=== PATIENT | female | born 1955 | race Caucasian/White ===

== ENCOUNTER 2017-08-24 14:40 | Outpatient (CLI) | payer BC | END 2017-08-24 14:41 | disposition home or self-care (01) | LOC: ULT 14:40 | PROVIDERS: ATTEND Internal Medicine | DX: I50.9 Heart failure, unspecified (principal) | CPT/HCPCS: 93306 ==

== ENCOUNTER 2017-11-03 19:30 | Outpatient (CLI) | payer BC | END 2017-11-03 19:31 | disposition home or self-care (01) | LOC: SLEEPLAB 19:30 | PROVIDERS: ATTEND Internal Medicine | DX: G47.33 Obstructive sleep apnea (adult) (pediatric) (principal); E66.9 Obesity, unspecified; I50.9 Heart failure, unspecified; I48.91 Unspecified atrial fibrillation; J44.9 Chronic obstructive pulmonary disease, unspecified; R53.83 Other fatigue; R06.83 Snoring | CPT/HCPCS: 95811 ==

== ENCOUNTER 2018-10-20 15:07 | Outpatient (CLI) | payer BC ==
--- NOTE | 2018-10-24 14:48 | MMO ---
MAMMOGRAM DIGITAL SCREENING BILATERAL: DATE: 10/20/18 HISTORY: 63-year-old female for baseline bilateral screening mammogram. COMPARISON: None available. TECHNIQUE: Digital mammographic views. Computer-aided detection (CAD) utilized. FINDINGS: The breasts are almost entirely fatty. There are two well-circumscribed nodules in the left upper outer quadrant consistent with intramammar y lymph nodes. Otherwise, there is no evidence of suspicious mass, suspicious calcifications, or architectural disto rtion. IMPRESSION: 1. BIRADS 2 - benign. 2. Recommendation: routine bilateral annual screening mammogram (unless the patient develops suspici ous clinical findings that would warrant earlier imaging follow up). lucas [] POS: MARIELA
== END 2018-10-20 15:08 | disposition home or self-care (01) ==
LOC: SCSMAMMO 15:07
PROVIDERS: ATTEND Internal Medicine
DX: Z12.31 Encounter for screening mammogram for malignant neoplasm of breast (principal)
CPT/HCPCS: 77067

== ENCOUNTER 2019-07-19 13:56 | Outpatient (CLI) | payer BC ==
--- NOTE | 2019-07-19 14:23 | RAD ---
XR Chest Pa Lat @ POB HISTORY: Dyspnea COMPARISON: None FINDINGS: The heart size is normal. The lungs are well expanded without focal areas of consolidation, pneumothorax or pleural effusions. IMPRESSION: No radiographic evidence of acute cardiopulmonary process.
== END 2019-07-19 13:57 | disposition home or self-care (01) ==
LOC: RAD 13:56
PROVIDERS: ATTEND Internal Medicine Pulmonary Disease
DX: R06.00 Dyspnea, unspecified (principal)
CPT/HCPCS: 71046

== ENCOUNTER 2019-07-24 10:19 | Emergency (ER) | payer BC ==
[2019-07-24 10:58] LABS: #Eosinphils 0.3 thou/uL (0.0-0.7); #Lymphocytes 2.3 thou/uL (1.20-3.40); #Monocytes 0.9 thou/uL (0.11-0.59); #Neutrophils 6.4 thou/uL (1.40-6.50); %Basophils 0.2 % (0.0-1.0); %Eosinophils 2.8 % (0.0-10.0); %Lymphocytes 23.4 % (21.0-51.0); %Monocytes 8.7 % (0.0-10.0); Hemoglobin 11.8 g/dL (12.0-16.0); Mean Corpuscular HGB CONC 33.1 g/dL (32.0-36.0); Mean Corpuscular Hemoglobin 27.5 pg (27.0-31.0); Mean Platelet Volume 9.1 fL (7.4-10.4); Platelet Count 285 thou/uL (130-400); RBC Distribution Width 14.3 % (11.5-14.5); Red Blood Cell (RBC) Count 4.29 mill/uL (4.20-5.40); White Blood Cell (WBC) Count 9.9 thou/uL (4.8-10.8)
[2019-07-24 11:19] LABS: ALT (SGPT) 22 U/L (8-55); AST (SGOT) 22 U/L (5-34); Albumin 3.9 g/dL (3.4-4.8); Alkaline Phosphatase 65 U/L (40-150); Anion Gap 18 mmol/L (10-20); BUN (Urea Nitrogen) 29 mg/dL (9.8-20.1); Bilirubin, Total 0.4 mg/dL (0.2-1.2); CK (CPK) 210 U/L (29-168); Calc. Creatinine Clearance 0 mL/min (70-130); Calcium 9.5 mg/dL (7.8-10.44); Carbon Dioxide 27 mmol/L (23-31); Chloride 96 mmol/L (98-107); Estimated GFR-MDRD 44; Globulin 3.4 g/dL (2.4-3.5); Glucose 207 mg/dL (80-115); Lipase 31 U/L (8-78); Potassium 3.6 mmol/L (3.5-5.1); Protein, Total 7.3 g/dL (6.0-8.3); Sodium 137 mmol/L (136-145)
--- NOTE | 2019-07-24 12:04 | CT ---
EXAM: CT angiogram of the chest including 3-D rendering: HISTORY: Atrial fibrillation history elevated heart rate COMPARISON: None FINDINGS: There is adequate opacification of the pulmonary arteries. No evidence for aortic aneurysm or dissection. No convincing CT evidence for acute pulmonary embolism. Nonspecific heterogeneous mild bilateral mosaic appearance of the chest. No evidence for mediastinal mass or adenopathy. No evidence for pleural or pericardial effusion. The visualized upper abdomen is unremarkable. IMPRESSION: No convincing CT evidence for acute pulmonary embolism. Minimal nonspecific bilateral mosaic appearance of the chest
[2019-07-24] MEDS ORDERED: ISOVUE-370 76%-LOCM 1 ML ONE (13:11)
[2019-07-24] MEDS ORDERED: Metoprolol Tartrate 25 MG TAB ONE (13:36)
[2019-07-24 13:40] LABS: Bilirubin Negative (Negative); Blood, Urine Negative (Negative); Clarity Clear (Clear); Glucose, Urine (Dipstick) Normal (Negative); Leukocyte Negative Leu/uL (Negative); Nitrite Negative (Negative); Protein, Urine (Dipstick) Negative (Neg-Trace); Urobilinogen Normal mg/dL (Less than 2)
== END 2019-07-24 13:48 | disposition home or self-care (01) ==
LOC: ERS 10:19
DX: R00.0 Tachycardia, unspecified (principal); I48.91 Unspecified atrial fibrillation; E11.9 Type 2 diabetes mellitus without complications
CPT/HCPCS: 36415; 71275; 80053; 81003; 82550; 83690; 84484; 85025; 85379; 93005; 94760; 96361; 96374; Q9966

== ENCOUNTER 2019-07-27 11:53 | Day surgery (SDC) | payer BC ==
[2019-07-26 14:08] VITALS: BMI 51.0
[2019-07-27] MEDS ORDERED: PROPOFOL 200 MG/20 ML VIAL ONE (13:07)
[2019-07-27] MEDS ORDERED: PROPOFOL 20 ML ONE (13:15)
--- NOTE | 2019-07-27 14:34 | OP ---
DATE OF PROCEDURE: 07/27/2019 PREOPERATIVE DIAGNOSIS: Atrial flutter. POSTPROCEDURE DIAGNOSIS: Sinus rhythm. PROCEDURE PERFORMED: Successful synchronized cardioversion at 100 joules. COMPLICATIONS: None. ANESTHESIA: Conscious sedation with propofol. INDICATIONS FOR PROCEDURE: The patient was seen and evaluated in the office by Anne-Marie Joe PA-C. She was found to be in atrial flutter. She did have shortness of breath. She was tachycardic, this is a new finding. She was scheduled for cardioversion. I discussed the procedure in full detail with Ms. Brown. Risks included, not limited to the following: Stroke, need for repeat cardioversion, failed cardioversion, burning of skin. All questions were answered. Given the above, the patient agreed to proceed with above procedure. Conscious sedation performed with propofol. DESCRIPTION OF PROCEDURE: Synchronized cardioversion performed at 100 joules. This was successful. Job ID: [id number]
== END 2019-07-27 14:10 | disposition home or self-care (01) ==
LOC: CCL 11:53
PROVIDERS: ATTEND Internal Medicine Cardiovascular Disease
PROC: 5A2204Z Restoration of Cardiac Rhythm, Single (ICD-10-PCS; principal; 2019-07-27)
DX: I48.3 Typical atrial flutter (principal); E78.5 Hyperlipidemia, unspecified; E11.9 Type 2 diabetes mellitus without complications; I10 Essential (primary) hypertension; I48.0 Paroxysmal atrial fibrillation; J44.9 Chronic obstructive pulmonary disease, unspecified; Z87.891 Personal history of nicotine dependence; Z79.01 Long term (current) use of anticoagulants; Z79.4 Long term (current) use of insulin; Z79.899 Other long term (current) drug therapy; Z88.6 Allergy status to analgesic agent
CPT/HCPCS: 36416; 92960; J2704

== ENCOUNTER 2019-09-01 09:45 | Outpatient (CLI) | payer BC ==
[2019-09-01 13:46] LABS: Hemoglobin 11.7 g/dL (12.0-16.0); Mean Corpuscular HGB CONC 32.6 g/dL (32.0-36.0); Mean Corpuscular Hemoglobin 26.7 pg (27.0-31.0); Mean Corpuscular Volume 81.7 fL (78.0-98.0); Mean Platelet Volume 8.9 fL (7.4-10.4); Platelet Count 285 thou/uL (130-400); RBC Distribution Width 14.5 % (11.5-14.5); White Blood Cell (WBC) Count 12.2 thou/uL (4.8-10.8)
[2019-09-01 13:53] LABS: INR-International Normal Ratio 1.1; Prothrombin Time 14.5 SEC (12.0-14.7)
[2019-09-01 14:08] LABS: Anion Gap 15 mmol/L (10-20); BUN (Urea Nitrogen) 27 mg/dL (9.8-20.1); Calc. Creatinine Clearance 0 mL/min (70-130); Calcium 9.5 mg/dL (7.8-10.44); Carbon Dioxide 29 mmol/L (23-31); Chloride 94 mmol/L (98-107); Estimated GFR-MDRD 44; Glucose 172 mg/dL (80-115); Potassium 3.4 mmol/L (3.5-5.1); Sodium 135 mmol/L (136-145)
--- NOTE | 2019-09-04 11:39 | EKG ---
Test Reason : Blood Pressure : / mmHG Vent. Rate : 087 BPM Atrial Rate : 087 BPM P-R Int : 144 ms QRS Dur : 096 ms QT Int : 390 ms P-R-T Axes : 061 058 045 degrees QTc Int : 469 ms Normal sinus rhythm Cannot rule out Inferior infarct (cited on or before 24-JUL-2019) Abnormal ECG When compared with ECG of 24-JUL-2019 10:28, Fusion complexes are no longer Present Premature ventricular complexes are no longer Present Nonspecific T wave abnormality no longer evident in Inferior leads Nonspecific T wave abnormality no longer evident in Lateral leads Confirmed by Agapito SUERO ([id number]) on 09/04/2019 11:39:21 AM Referred By: [facility] Confirmed By:Agapito SUERO
== END 2019-09-01 09:46 | disposition home or self-care (01) ==
LOC: LABBT 09:45
PROVIDERS: ATTEND Internal Medicine Cardiovascular Disease
DX: Z01.818 Encounter for other preprocedural examination (principal); Z51.81 Encounter for therapeutic drug level monitoring; I48.92 Unspecified atrial flutter; Z79.01 Long term (current) use of anticoagulants
CPT/HCPCS: 80048; 85027; 85610; 85730; 93005; 93010

== ENCOUNTER 2019-09-04 06:57 | Day surgery (SDC) | payer BC ==
[2019-09-01 13:13] VITALS: BMI 49.9
[2019-09-04] MEDS ORDERED: Heparin 10,000 UNITS/1 ML VIAL ONE (07:18)
[2019-09-04] MEDS ORDERED: Lidocaine 1% (PF) 30 ML VIAL ONE ×2 (07:19→08:32)
[2019-09-04] MEDS ORDERED: Phenylephrine HCL 10 MG/ML VIAL ONE (07:38)
[2019-09-04] MEDS ORDERED: Lidocaine 2% Jelly 5 ML TUBE ONE (07:38)
[2019-09-04] MEDS ORDERED: Fentanyl 100 MCG/2 ML VIAL ONE (07:38)
[2019-09-04] MEDS ORDERED: Isoproterenol 0.2 MG/1 ML AMP ONE (09:03)
[2019-09-04] MEDS ORDERED: DOPamine 400 MG/D5W 250 ML 250 ML ONE (09:57)
[2019-09-04] MEDS ORDERED: Metoprolol Tartrate 5 MG/5 ML VIAL ONE (10:42)
--- NOTE | 2019-09-04 13:36 | RAD ---
Exam: Chest one view HISTORY:Postop ablation. Comparison: 07/19/2019 FINDINGS: Cardiac silhouette: Normal Aorta: Unremarkable Pulmonary vessels: Normal Costophrenic angles: Clear LUNGS: No masses or consolidation. Pneumothorax: None Osseous abnormalities: None IMPRESSION: No acute cardiopulmonary process.
--- NOTE | 2019-09-04 15:06 | OP ---
DATE OF PROCEDURE: 09/04/2019 PROCEDURES PERFORMED: Electrophysiology study and radiofrequency ablation. REASON FOR PROCEDURE: Ms. Brown is a pleasant 64-year-old woman with history of recurrent atrial flutter on anticoagulation, who also has obesity, COPD, type 2 diabetes, and hypertension. She is here for an EP study and radiofrequency ablation procedure. DESCRIPTION OF PROCEDURE: The patient received propofol by Anesthesia specialist and general anesthesia was performed due to her elevated BMI. The right femoral vein area was prepped, draped, and anesthetized using subcutaneous lidocaine and with ultrasound guidance, two 8-Yoruba short sheaths were introduced through which a ThermoLabtiva SFST catheter was advanced to the right atrium obtaining a 3D map of the right atrium, His bundle, and CS location as was the cavotricuspid isthmus was well delineated. A decapolar catheter was advanced to the right atrium, right ventricle, His bundle, and CS location. Pacing, mapping, and recording were performed including left atrial pacing via the CS poles. Following findings were noted; baseline rhythm was sinus rhythm at cycle length 783 milliseconds, NH 138 milliseconds, QRS 86 milliseconds, QT 395 milliseconds, AH 97 milliseconds, and HV 37 millisecond. Sinus node recovery time is 1269 milliseconds and corrected at 400 milliseconds. AV Wenckebach cycle length was 320 milliseconds. Retrograde Wenckebach cycle length was 280 milliseconds. Concentric retrograde VA conduction was seen throughout. AV anton ERP was measured at 600/280 milliseconds. No definite jump was seen up until prior to the ERP. With burst atrial pacing, we were able to induce an atrial flutter with cycle length about 215 milliseconds. Pacing from the CS os/cavotricuspid isthmus area, entrained the tachycardia and the post pacing interval matched the tachycardia cycle length suggestive of isthmus dependency of the circuit. Following that, radiofrequency ablation of the cavotricuspid isthmus ablation was performed. During proximal CS pacing, we were able to prolong the transisthmus time to 120 milliseconds. Posterior conduction was demonstrated during the atrial block of the isthmus was seen by longus transisthmus time adjacent to the ablation line. Following that, dopamine was administered and the line was found to be patent as well. Spontaneous atrial fibrillation was seen during the case, which eventually was cardioverted back to sinus rhythm. A total of 14 ablation lesions with total ablation time 40 minutes and 36 seconds. CONCLUSION: 1. Successful cavotricuspid isthmus ablation. 2. Baseline inducible atrial flutter, not inducible after the ablation. 3. Normal sinus anton recovery time, normal AV anton and His-Purkinje function. 4. No evidence of accessory pathway or dual AV anton physiology present. 5. Spontaneous-induced atrial fibrillation, shock terminated. PLAN: 1. Resume anticoagulation. Monitor for recurrent atrial arrhythmias. Consider antiarrhythmic therapy or pulmonary venous isolation if recurrent atrial fibrillation is seen. 2. Weight loss is strongly advised. Job ID: [id number]
== END 2019-09-04 14:30 | disposition home or self-care (01) ==
LOC: CCL 06:57
PROVIDERS: ATTEND Internal Medicine Cardiovascular Disease
PROC: 4A0234Z Measurement of Cardiac Electrical Activity, Percutaneous Approach (ICD-10-PCS; principal; 2019-09-04)
PROC: 4A023FZ Measurement of Cardiac Rhythm, Percutaneous Approach (ICD-10-PCS; principal; 2019-09-04)
PROC: 02583ZZ Destruction of Conduction Mechanism, Percutaneous Approach (ICD-10-PCS; principal; 2019-09-04)
DX: I48.92 Unspecified atrial flutter (principal); I10 Essential (primary) hypertension; E11.9 Type 2 diabetes mellitus without complications; J44.9 Chronic obstructive pulmonary disease, unspecified; E66.01 Morbid (severe) obesity due to excess calories; Z68.43 Body mass index [BMI] 50.0-59.9, adult; Z79.4 Long term (current) use of insulin; Z79.899 Other long term (current) drug therapy; Z87.891 Personal history of nicotine dependence; Z88.8 Allergy status to other drugs, medicaments and biological substances
CPT/HCPCS: 36416; 71045; 76942; 92960; 93005; 93613; 93623; 93653; C1732; C1769; J1265; J1644; J2001; J2370; J3010

== ENCOUNTER 2019-09-05 22:32 | Inpatient (IN) | payer BC ==
--- NOTE | 2019-09-05 22:49 | RAD ---
Exam: Chest one view HISTORY:Emergency exam Comparison: 09/04/2019 FINDINGS: Lungs: Patchy right lower lung zone density Cardiac silhouette:Enlarged cardiac silhouette Pulmonary vessels: Engorged pulmonary vasculature Pleural Spaces: Blunting of right lateral costophrenic sulcus Pneumothorax: None Osseous abnormalities: None of acuity. IMPRESSION: Findings indicate fluid overload. Patchy right infrahilar, lower lung zone density could relate to edema or superimposed pneumonitis. Recommend continued imaging follow-up. Transcribed Date/Time: 09/05/2019 11:03 PM
[2019-09-05] MEDS ORDERED: Diltiazem 125 MG/25 ML ONE (22:58)
[2019-09-05 23:07] LABS: #Basophils 0.1 thou/uL (0.0-0.2); #Eosinphils 0.3 thou/uL (0.0-0.7); #Lymphocytes 3.7 thou/uL (1.20-3.40); #Neutrophils 8.1 thou/uL (1.40-6.50); %Basophils 0.4 % (0.0-1.0); %Neutrophils 61.6 % (42.0-75.0); Hemoglobin 11.4 g/dL (12.0-16.0); Mean Corpuscular Hemoglobin 27.2 pg (27.0-31.0); Mean Corpuscular Volume 82.3 fL (78.0-98.0); Mean Platelet Volume 8.9 fL (7.4-10.4); Platelet Count 269 thou/uL (130-400); RBC Distribution Width 14.8 % (11.5-14.5); Red Blood Cell (RBC) Count 4.21 mill/uL (4.20-5.40); White Blood Cell (WBC) Count 13.1 thou/uL (4.8-10.8)
[2019-09-05 23:27] LABS: ALT (SGPT) 19 U/L (8-55); AST (SGOT) 21 U/L (5-34); Albumin 3.9 g/dL (3.4-4.8); Alkaline Phosphatase 71 U/L (40-110); Anion Gap 16 mmol/L (10-20); BUN (Urea Nitrogen) 21 mg/dL (9.8-20.1); Bilirubin, Total 0.4 mg/dL (0.2-1.2); Calc. Creatinine Clearance 0 mL/min (70-130); Calcium 9.6 mg/dL (7.8-10.44); Carbon Dioxide 27 mmol/L (23-31); Chloride 95 mmol/L (98-107); Estimated GFR-MDRD 43; Glucose 187 mg/dL (80-115); Potassium 3.1 mmol/L (3.5-5.1); Protein, Total 7.9 g/dL (6.0-8.3); Sodium 135 mmol/L (136-145)
[2019-09-05 23:56] LABS: CKMB 1.5 ng/mL (0-6.6)
[2019-09-06] MEDS ORDERED: cefTRIAXone\\ROCEPHIN 2 GM VIAL ONE (00:45)
[2019-09-06] MEDS ORDERED: Aspirin Chewable 81 MG TAB ONE (00:45)
[2019-09-06] MEDS ORDERED: Potassium Chloride 20 MEQ TAB ONE (00:45)
[2019-09-06] MEDS ORDERED: Enoxaparin Sodium 30 MG/0.3 ML SYRINGE ONE (00:54)
[2019-09-06] MEDS ORDERED: Enoxaparin Sodium 100 MG/ML SYRINGE ONE (00:54)
[2019-09-06] MEDS ORDERED: Acetaminophen 325 MG TAB PO PRN (01:08)
[2019-09-06] MEDS ORDERED: Magnesium 2 GM/50 ML 2 GM in Premix Bag 1 BAG IVPB SCH (01:15)
--- NOTE | 2019-09-06 01:20 | PDOC.EVN ---
Event Note - Event Note Event Note: Dictated
[2019-09-06] MEDS ORDERED: Potassium Chloride 10 MEQ in Premix Bag 1 BAG IVPB SCH (02:00)
--- NOTE | 2019-09-06 02:00 | HP ---
CHIEF COMPLAINT: Shortness of breath. HISTORY OF PRESENT ILLNESS: Ms. Brown is a 64-year-old female with past medical history of atrial fibrillation/atrial flutter, who underwent cardiac ablation yesterday, presented to the emergency room with shortness of breath and chest tightness that started while walking. Workup in the emergency room, the patient was found to be in atrial fibrillation with rapid ventricular response, heart rate in the 140s. Initially, the patient was given 20 mg of IV diltiazem with no response. The patient started on IV Cardizem drip, also she was found to be hypokalemic with a potassium of 3.1 and hypomagnesemic with a magnesium level of 1.5. Potassium and magnesium supplements started in the ED. Initial troponin is 0.237. The patient denies chest pain. The patient was given one dose of IV Lovenox. WBC count is elevated at 13.1. Also, the patient was given one dose of IV ceftriaxone. The patient is being admitted to the [facility] for further management. PAST MEDICAL HISTORY: 1. Atrial fibrillation. 2. Diabetes mellitus. 3. Sleep apnea. PAST SURGICAL HISTORY: 1. Left knee surgery. 2. Appendectomy. 3. Cholecystectomy. 4. Cardiac ablation. FAMILY HISTORY: Reviewed and noncontributory. SOCIAL HISTORY: She is a former cigarette smoker. Denies alcohol drinking or drug abuse. FAMILY HISTORY: Reviewed and noncontributory. HOME MEDICATIONS: Please see home medication reconciliation form for updated medications. ALLERGIES: ALLERGIC TO NSAID. REVIEW OF SYSTEMS: Review of 14 systems negative except what is mentioned in the history of present illness. PHYSICAL EXAMINATION: GENERAL: The patient is awake, alert, in moderate distress. VITAL SIGNS: Blood pressure 118/91, pulse is 110, respiratory rate is 18, temperature 98.4. HEAD AND NECK: Normocephalic, atraumatic. NECK: Supple. No JVD. CHEST: Fair bilateral air entry. HEART: Irregularly irregular. Tachycardic. ABDOMEN: Soft, nontender. Bowel sounds present. NEUROLOGIC: Awake, alert, oriented x3. PSYCHIATRIC: Normal mood. EXTREMITIES: No clubbing, or cyanosis. LABORATORY DATA: Potassium is low at 3.1, magnesium is low at 1.5, WBC count elevated at 13.1, hemoglobin 11.4, BUN is 21, creatinine 1.25. ASSESSMENT: 1. Atrial fibrillation with rapid ventricular response. The patient just had a cardiac ablation yesterday. 2. Acute shortness of breath. 3. Diabetes mellitus with hyperglycemia, type 2. 4. Sleep apnea. PLAN: 1. Admit to IMCU. 2. Continue with IV diltiazem drip. 3. Replace potassium. 4. Replace magnesium. 5. Serial cardiac enzymes. 6. We will consult patient's cardiac mainframe programmer analyst for evaluation and further recommendations. 7. The patient was given one dose of Lovenox in the ED, the patient is supposed to be started tomorrow on Eliquis. Further anticoagulation as per Cardiology. 8. Reconcile home medications. 9. Deep venous thrombosis prophylaxis as appropriate. 10. Expected length of stay, 2 midnights or more. Job ID: [id number]
[2019-09-06 03:32] VITALS: BMI 51.4
[2019-09-06 03:54] LABS: CKMB 1.1 ng/mL (0-6.6)
[2019-09-06 05:21] LABS: #Basophils 0.1 thou/uL (0.0-0.2); #Eosinphils 0.3 thou/uL (0.0-0.7); #Lymphocytes 3.7 thou/uL (1.20-3.40); #Monocytes 0.9 thou/uL (0.11-0.59); #Neutrophils 5.6 thou/uL (1.40-6.50); %Basophils 0.8 % (0.0-1.0); %Eosinophils 2.5 % (0.0-10.0); %Lymphocytes 35.3 % (21.0-51.0); %Monocytes 8.7 % (0.0-10.0); %Neutrophils 52.8 % (42.0-75.0); Hemoglobin 10.8 g/dL (12.0-16.0); Mean Corpuscular HGB CONC 33.3 g/dL (32.0-36.0); Mean Corpuscular Hemoglobin 27.4 pg (27.0-31.0); Mean Corpuscular Volume 82.2 fL (78.0-98.0); Platelet Count 242 thou/uL (130-400); RBC Distribution Width 14.7 % (11.5-14.5); Red Blood Cell (RBC) Count 3.96 mill/uL (4.20-5.40); White Blood Cell (WBC) Count 10.5 thou/uL (4.8-10.8)
[2019-09-06 05:44] LABS: Anion Gap 15 mmol/L (10-20); BUN (Urea Nitrogen) 22 mg/dL (9.8-20.1); Calc. Creatinine Clearance 110 mL/min (70-130); Carbon Dioxide 29 mmol/L (23-31); Chloride 95 mmol/L (98-107); Estimated GFR-MDRD 52; Glucose 138 mg/dL (80-115); Magnesium 2.2 mg/dL (1.6-2.6); Potassium 3.2 mmol/L (3.5-5.1); Sodium 136 mmol/L (136-145)
[2019-09-06] MEDS: Famotidine 20 MG TAB PO SCH ×2 (09:30→19:14)
[2019-09-06] MEDS: Diltiazem 125 MG in Sodium Chloride 0.9% 100 ML IVPB SCH ×2 (10:16→20:17)
[2019-09-06] MEDS ORDERED: Dronedarone HCl 400 MG TAB PO SCH (10:51)
--- NOTE | 2019-09-06 11:43 | CON ---
DATE OF CONSULTATION: 09/06/2019 This consultation encompassed 70 minutes of time, of that time, greater than 50% spent with the patient and/or the patient's unit in the hospital. REASON FOR CONSULTATION: IMCU management. HISTORY OF PRESENT ILLNESS: The patient is a pleasant 64-year-old female, who was hospitalized yesterday with atrial fibrillation with rapid ventricular response. She has underlying history of ELIZ and COPD. She is managed by my partner, Dr. Hoff as an outpatient. She states that she has been compliant with her CPAP. She underwent a cardiac ablation 2 days ago for atrial flutter. He was hopeful that would also alleviate her atrial fibrillation, but it is not. She has been using a Symbicort inhaler for her COPD, but she thinks that may be aggravating her heart rate. Currently, she is only short of breath with exertion and her heart rate is under control on a Cardizem drip. PAST MEDICAL HISTORY: 1. Atrial fibrillation. 2. Atrial flutter. 3. Diabetes mellitus. 4. ELIZ. 5. COPD. PAST SURGICAL HISTORY: 1. Left knee surgery. 2. Cardiac ablation. 3. Appendectomy. 4. Cholecystectomy. FAMILY MEDICAL HISTORY: Unremarkable. SOCIAL HISTORY: Formerly smoked for about 32 years and quit 12 years ago. 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 She does not consume alcohol. Does not use illicit drugs. ALLERGIES: NONSTEROIDAL ANTI-INFLAMMATORY. MEDICATIONS: Prior to admission: 1. Symbicort 160/4.5 two puffs twice daily. 2. Prilosec 20 mg daily. 3. Atorvastatin 20 mg daily. 4. Tramadol 50 mg b.i.d. as needed. 5. Glyburide/metformin two tablets b.i.d. 6. Metoprolol-XL 25 mg daily. 7. Potassium chloride 20 mEq daily. 8. Zaroxolyn 5 mg daily. 9. Lantus insulin 58 units daily. 10. Lasix 40 mg daily. 11. Eliquis 5 mg b.i.d. REVIEW OF SYSTEMS: Remarkable for shortness of breath with exertion. No fever, chills, nausea, vomiting, hematemesis, melena, hematochezia, or hematuria. The remainder of 12-point review of systems is negative. PHYSICAL EXAMINATION: VITAL SIGNS: Temperature 98.4, pulse 75, blood pressure 118/59, and O2 saturation 98%. Her height 5 feet 3 inches, weight 290 pounds. GENERAL: She is awake and alert, and in no distress. HEENT: Unremarkable. NECK: No adenopathy or JVD. CHEST: Clear to auscultation without wheezing or rhonchi. CARDIAC: S1 and S2, regular on a Cardizem drip. ABDOMEN: Soft and nontender to palpation. EXTREMITIES: No clubbing, cyanosis, or edema. LABORATORY DATA: Sodium 136, potassium 3.2, BUN 22, creatinine 1.1, glucose 138. Troponin 0.227. White blood cell count 10.5, hematocrit 32.6, and platelet count 242. ASSESSMENT: 1. Atrial fibrillation with rapid ventricular response, currently controlled on Cardizem drip. 2. Stable chronic obstructive pulmonary disease. 3. Stable obstructive sleep apnea. PLAN: 1. Continue CPAP at night at 13 cmH2O. She can bring her machine in from home. 2. I have told her withhold her Symbicort for the time being until atrial fibrillation has been addressed by Cardiology. We will follow. I will notify Dr. Hoff of the patient's admission. At some point, she may need to restart anticoagulation if no further procedures were planned. Job ID: [id number]
[2019-09-06] MEDS ORDERED: Potassium Chloride 20 MEQ TAB PO SCH (11:45)
--- NOTE | 2019-09-06 14:32 | CON ---
DATE OF CONSULTATION: REASON FOR CONSULTATION: Atrial fibrillation. HISTORY OF PRESENT ILLNESS: Ms. Brown is a woman known to our practice for atrial arrhythmias including atrial fibrillation and atrial flutter. Earlier this week, she underwent an Electrophysiology study and radiofrequency ablation for typical right atrial flutter with a successful cavotricuspid isthmus ablation. She has been seen to have atrial fibrillation clinically and during the EP study, but largely her issue is atrial flutter. She was discharged in sinus rhythm, but unfortunately woke up in the middle of the night experiencing shortness of breath and some chest tightness and came to the emergency room for further evaluation. She was found to be in atrial fibrillation with RVR with heart rates in the 140s. Initial bolus of IV diltiazem 20 mg was ineffective. She was found to be hypokalemic with potassium 3.1 and hypomagnesemic with a magnesium of 1.5. Her electrolytes were replaced. She had a slight bump in her troponin likely tachycardic driven ischemia. She was given a dose of IV Lovenox. She has since converted to sinus rhythm and is feeling much better. Currently, Ms. Brown denies any heart racing, palpitations, chest pain, pressure, syncope, near syncope, stroke, or stroke-like symptoms. PAST MEDICAL HISTORY: 1. Atrial flutter status post CTI ablation on 09/04/2019. 2. Paroxysmal atrial fibrillation. 3. Preserved LV ejection fraction 55% to 60% with normal LV and right atrial size by echo in March of 2019. 4. COPD. 5. Type 2 diabetes. 6. Hypertension. 7. Varicose veins and venous reflux disease. 8. Pulmonary disease. 9. Morbid obesity. PAST SURGICAL HISTORY: Left knee repair, tubal ligation, and cholecystectomy. ALLERGIES: ENTRESTO AND NSAIDS. HOME MEDICATIONS: 1. Omeprazole daily. 2. Vitamin D3 daily. 3. Tylenol as needed. 4. Lipitor at bedtime. 5. Tramadol 50 mg b.i.d. as needed. 6. Metformin/glyburide 2 tablets b.i.d. 7. Triamcinolone p.r.n. 8. Toprol-XL 25 mg p.o. daily. 9. K-Dur 20 mEq daily. 10. Zaroxolyn 5 mg p.o. daily. 11. Lantus SoloStar 58 units subcu daily. 12. Lasix 40 mg daily. 13. Eliquis 5 mg p.o. b.i.d. 14. Symbicort two puffs inhaler b.i.d. SOCIAL HISTORY: She is a nurse, working as desk job right now. She has a long history of smoking, but has quit. She denies any alcohol or drug use. She is . FAMILY HISTORY: Mother has . Father passed from CHF. She has brothers and sisters and sons, who are alive and healthy. REVIEW OF SYSTEMS: A 12-point review of systems is negative except that listed above in HPI. OBJECTIVE: VITAL SIGNS: Temperature 98.4, pulse 75, blood pressure 118/58, respirations 16, and oxygen 91% on room air. GENERAL: The patient is alert and oriented. Speech is clear. Affect is appropriate. She is sitting upright in bed, in no apparent distress. She is morbidly obese. Her BMI is 51.5. NECK: Supple without jugular venous distention. No carotid bruits or thyromegaly are noted. Carotid upstrokes are normal. CHEST: Clear to auscultation without crackles or rhonchi. HEART: Sounds have regular rate and rhythm with crisp S1 and S2. There is no murmur, rub, or gallop appreciated. PMI is nonpalpable. ABDOMEN: Obese, soft, and nontender without palpable masses. Hepatojugular reflux is negative. EXTREMITIES: Warm and dry to touch without clubbing, cyanosis, or edema. NEUROLOGIC: Grossly intact and nonfocal. Gait was not assessed. DATABASE: EKG today and telemetry shows normal sinus rhythm with normal intervals and nonspecific ST-T changes with heart rates in the 70s. Telemetry upon admission shows atrial fibrillation with rates between 120 and 140 beats per minute, which spontaneously converted. LABORATORY DATA: Hemoglobin 10.8, hematocrit 32.6, and platelet count is 242. Chemistry; potassium is 3.2, creatinine 1.07, and magnesium after replacement is 2.2. Serial troponins are being conducted, peak was 0.228 and is now trending down. TSH 0.53. BNP 103. Liver enzymes were within normal limits. IMPRESSION: 1. Atrial fibrillation with rapid ventricular rates. 2. History of atrial flutter status post successful cavotricuspid isthmus ablation on 09/04/2019. 3. Morbid obesity. 4. Diabetes. 5. Hypertension. 6. CHADS-VASc score of at least 3 based on female gender, diabetes, and hypertension on Eliquis 5 mg b.i.d. for stroke prophylaxis. PLAN AND RECOMMENDATIONS: Ms. Brown is known to have atrial arrhythmias and underwent an EP study with an ablation of her cavotricuspid isthmus. This was performed earlier this week and she was seen to have some spontaneous atrial fibrillation during the case, which eventually converted back to sinus rhythm with some IV amiodarone. She was at that time discharge in stable condition in sinus rhythm. It is my hope that we would not see further atrial fibrillation. Unfortunately, she went back in atrial fibrillation with RVR prompting this hospital stay. We discussed treatment options for atrial fibrillation, including watchful waiting, antiarrhythmic therapy, and future ablation. At this point, I will start her on Multaq 400 mg p.o. b.i.d. and recommend she is to be watched overnight, possibly discharge in the morning if medically stable. Weight loss is strongly advised. We discussed the correlation between obesity, hypertension, and untreated sleep apnea with increased prevalence of atrial arrhythmias. We could discuss pulmonary venous isolation procedure in the future if arrhythmias are refractory to antiarrhythmic therapy. However, this could prove quite difficult given her BMI of 51 and could possibly require multiple ablation and have limited success with the extra strain that her obesity places on her heart. I will resume her Eliquis 5 mg b.i.d. We will see her back in clinic in 6 weeks or sooner if symptoms dictate. Thank you for allowing us to participate in the care of this patient. Job ID: [id number]
[2019-09-06] MEDS ORDERED: traMADol HCl 50 MG TAB PO PRN (15:43)
--- NOTE | 2019-09-06 15:48 | PDOC.HOSPP ---
- Subjective Encounter Date: 09/06/19 Encounter Time: 15:45 Subjective: f/u A-fib RVR now converted back to SR. Recent CTI ablation for A-flutter now on Multaq, Eliquis and Metoprolol. No new complaints. - Objective Vital Signs & Weight: Vital Signs (12 hours) Temp Pulse Resp Pulse Ox 09/06/19 15:26 96.6 F L 09/06/19 11:21 97.2 F L 09/06/19 07:30 98 09/06/19 07:20 98.4 F 09/06/19 05:06 81 17 96 09/06/19 03:59 94 L Weight Weight 290 lb 8 oz Most Recent Monitor Data Heart Rate from ECG 71 NIBP 132/57 NIBP BP-Mean 82 Respiration from ECG 16 SpO2 96 I&O: 09/05/19 09/06/19 09/07/19 06:59 06:59 06:59 Intake Total 120 Balance 120 Result Diagrams: 09/06/19 04:59 09/06/19 04:59 Additional Labs: Accuchecks 09/06/19 09/06/19 10:29 06:40 POC Glucose 198 H 128 H Laboratory Tests 09/05/19 09/05/19 09/05/19 22:57 22:57 22:57 WBC 13.1 H Potassium 3.1 L Creatinine 1.25 H Magnesium 1.5 L 09/06/19 04:59 WBC Potassium Creatinine Magnesium 2.2 EKG Reviewed by me: Yes (Tele - SR) Hospitalist ROS - Medication Medications: Active Medications Generic Name Dose Route Start Last Admin Trade Name Marko PRN Reason Stop Dose Admin Famotidine 20 mg 09/06/19 09:00 09/06/19 09:30 Pepcid PO 20 mg BID VARSHA Administration Diltiazem HCl 125 mg/ Sodium 125 mls @ 0 mls/hr 09/05/19 23:15 09/06/19 10:16 Chloride IVPB 125 mls INF VARSHA Administration Protocol Titrate - Exam General Appearance: NAD, awake alert Eye: PERRL, anicteric sclera ENT: normocephalic atraumatic, no oropharyngeal lesions Neck: supple, symmetric, no JVD, no thyromegaly, no lymphadenopathy Heart: RRR, no murmur, no gallops, no rubs, normal peripheral pulses Respiratory: CTAB, no wheezes, no rales, no ronchi Gastrointestinal: soft, non-tender, non-distended, normal bowel sounds, no palpable masses Gastrointestinal - other findings: obese Extremities: no cyanosis, no clubbing Skin: normal turgor, no lesions Neurological: cranial nerve grossly intact, no focal deficits, no new deficit Musculoskeletal: normal tone, normal strength Psychiatric: normal affect, A&O x 3 Hosp A/P (1) Atrial fibrillation with RVR Code(s): I48.91 - UNSPECIFIED ATRIAL FIBRILLATION Status: Acute Plan: Converted to SR, continue Multaq, Metoprolol, Eliquis (2) Atrial flutter Code(s): I48.92 - UNSPECIFIED ATRIAL FLUTTER Status: Acute Plan: s/p ablation, see above #1 (3) Dyspnea Code(s): R06.00 - DYSPNEA, UNSPECIFIED Status: Acute Plan: Secondary to #1, resolved (4) Morbid obesity Code(s): E66.01 - MORBID (SEVERE) OBESITY DUE TO EXCESS CALORIES Status: Chronic (5) DM II (diabetes mellitus, type II), controlled Code(s): E11.9 - TYPE 2 DIABETES MELLITUS WITHOUT COMPLICATIONS Status: Chronic Plan: Resume Glargine, oral hypoglycemics and ISS - Plan out of bed/ambulate, DVT proph w/SCDs Stable currently Continue Multaq Continue Eliquis OOB/ambulate AM lab: BMP Likely home in 24h
[2019-09-06] MEDS ORDERED: Triamcinolone 0.1% Cream 15 GM TUBE TOP PRN (16:00)
[2019-09-06] MEDS: metFORMIN 500 MG TAB PO SCH (17:21)
[2019-09-06] MEDS: glyBURIDE 5 MG TAB PO SCH (17:22)
[2019-09-06] MEDS: Dronedarone HCl 400 MG TAB PO SCH (17:22)
[2019-09-06] MEDS: Mometasone/Formoterol 120 PUFF INHALER INH SCH (19:07)
[2019-09-06] MEDS: Apixaban 5 MG TAB PO SCH (19:14)
[2019-09-06] MEDS ORDERED: Atorvastatin Calcium 20 MG TAB PO SCH (21:00)
[2019-09-06] MEDS ORDERED: Apixaban 5 MG TAB PO SCH (21:00)
[2019-09-07 06:04] LABS: Hemoglobin 9.7 g/dL (12.0-16.0); Platelet Count 247 thou/uL (130-400)
[2019-09-07 06:19] LABS: Anion Gap 14 mmol/L (10-20); BUN (Urea Nitrogen) 18 mg/dL (9.8-20.1); Calc. Creatinine Clearance 102 mL/min (70-130); Calcium 9.3 mg/dL (7.8-10.44); Carbon Dioxide 29 mmol/L (23-31); Chloride 96 mmol/L (98-107); Estimated GFR-MDRD 47; Glucose 145 mg/dL (80-115); Potassium 3.4 mmol/L (3.5-5.1); Sodium 136 mmol/L (136-145)
[2019-09-07] MEDS: Mometasone/Formoterol 120 PUFF INHALER INH SCH (06:54)
[2019-09-07] MEDS ORDERED: Potassium Chloride 20 MEQ TAB PO SCH (08:00)
[2019-09-07] MEDS ORDERED: Insulin Glargine 58 UNITS in Pre-Filled Syringe 1 EACH SC SCH (09:00)
[2019-09-07] MEDS ORDERED: INSULIN GLARGINE HUM REC ANLOG 58 UNIT SC SCH (09:00)
[2019-09-07] MEDS ORDERED: Metolazone 5 MG TAB PO SCH (09:00)
[2019-09-07] MEDS ORDERED: Furosemide 40 MG TAB PO SCH (09:00)
[2019-09-07] MEDS: metFORMIN 500 MG TAB PO SCH (09:07)
[2019-09-07] MEDS: glyBURIDE 5 MG TAB PO SCH (09:07)
[2019-09-07] MEDS: Apixaban 5 MG TAB PO SCH (09:08)
[2019-09-07] MEDS: Famotidine 20 MG TAB PO SCH (09:08)
[2019-09-07] MEDS: Dronedarone HCl 400 MG TAB PO SCH (09:09)
--- NOTE | 2019-09-07 09:47 | PRG ---
DATE OF SERVICE: 09/07/2019 SUBJECTIVE: Awake, alert, and responsive. No shortness of breath, coughing, or wheezing. She has a Trelegy inhaler at home, which she thought was causing some atrial fibrillation. She has sleep apnea, on CPAP. OBJECTIVE: VITAL SIGNS: Temperature 97, pulse 97, blood pressure 132\76, respiratory rate 18. CHEST: No wheezing, crackles. CARDIAC: Normal S1, S2. No gallops. ABDOMEN: No masses. LABORATORY DATA: Creatinine 1.6. ASSESSMENT AND PLAN: 1. Atrial fibrillation. 2. Chronic obstructive pulmonary disease, on Trelegy. 3. Sleep apnea, on CPAP. 4. Morbid obesity. 5. Mild azotemia. Pulmonary cagle, she appears to be stable. Nothing additional to offer at this stage. Disposition as per Cardiology. Job ID: [id number] [id number]
[2019-09-07 10:49] VITALS: TEMP 97.4
--- NOTE | 2019-09-07 15:14 | PDOC.CPN ---
- Subjective Date: 09/07/19 Time: 08:00 Interval history: EP PROGRESS NOTE: 09/07/19 Follow up for atrial fibrillation. Feels well this AM after CV yesterday. No heart racing, palpitations, chest pain/pressure, or stroke like symptoms. Eager to go home. - Review of Systems Respiratory: denies: cough, congestion, shortness of breath, exercise intolerance Cardiovascular: denies: chest pain, palpitation, edema, paroxysmal nocturnal dyspnea, orthopnea Gastrointestinal: denies: nausea, vomiting, diarrhea, constipation, abd pain, GI bleeding Musculoskeletal: denies: pain, tenderness, stiffness, swelling, arthritis/ arthralgias Neurological: denies: numbness, syncope, seizure, weakness - Objective Allergies/Adverse Reactions: Allergies Allergy/AdvReac Type Severity Reaction Status Date / Time NSAIDS (Non-Steroidal Allergy Verified 09/06/19 03:45 Anti-Inflamma Vital Signs & Weight: Vital Signs Temp Pulse Ox 09/07/19 08:00 97 09/07/19 07:00 97.4 F L Weight 290 lb 8 oz - Physical Exam General: alert & oriented x3, appears well, no apparent distress HEENT: mucus membranes moist, normocephaly Neck: supple neck, midline trachea, no JVD/HJR, no masses, no bruit, no lymphadenopathy, no thromegaly Cardiac: regular rate and rhythm Lungs: clear to auscultation, normal breath sounds Neuro: grossly intact Abdomen: soft, non-tender Extremities: no edema - Labs Result Diagrams: 09/07/19 05:21 09/07/19 05:21 Troponin/CKMB CK-MB (CK-2) 1.1 ng/mL (0-6.6) 09/06/19 02:04 Troponin I 0.227 ng/mL (< 0.028) H 09/06/19 04:59 - Telemetry Sinus rhythms and dysrhythmias: sinus rhythm - Assessment/Plan Assessment/Plan: 1. Atrial arrhythmias -s/p CTI flutter RFA on 09/04 -persistent atrial fibrillation with RVR. Multaq started. s/p CV 09/06. In SR now 2. CHADS2-VASC: 3 (female, T2DM, HTN) - continue eliquis 5mg PO BID 3. Hypokalemia - resume home dose on DC 4. Hypomagnesemia -corrected HR 80's over HS on dilt gtt at 5mg/hr. Stopped gtt. OK for DC by EP. Continue Multaq, toprol XL, and eliquis on DC. 6 week follow up scheduled.
--- NOTE | 2019-09-07 19:24 | DIS ---
DATE OF ADMISSION: 09/06/2019 DATE OF DISCHARGE: 09/07/2019 DISCHARGE DIAGNOSES: 1. Atrial fibrillation with rapid ventricular response with current sinus mechanism. 2. Atrial flutter, status post ablation. 3. Dyspnea, secondary to #1, resolved. 4. Morbid obesity. 5. Diabetes mellitus type 2, insulin requiring. 6. Hypertension, stable. 7. Obstructive sleep apnea with nocturnal CPAP. 8. Hypokalemia, mild. 9. Chronic kidney disease stage 3. CONSULTATIONS: 1. Dr. Brooks with Electrophysiology Service. 2. Dr. Echevarria and Dr. Hoff with Pulmonology Service. PERTINENT LABORATORY AND X-RAY FINDINGS: Potassium ranged between 3.1 to 3.4. Creatinine ranged between 1.07 to 1.25. Estimated GFR ranged between 43 to 52. Magnesium level ranged between 1.5 to 2.2. Troponin I ranged between 0.227 to 0.237. BNP 103. TSH 0.53. CBC showed a white blood cell count ranged between 10.5 to 13.1, hemoglobin ranged between 9.7 to 11.4. Blood cultures x2 dated 09/06/2019, showed no growth to date. Portable chest x-ray dated 09/05/2019, showed patchy infiltrate of the right infrahilar region. HOSPITAL COURSE: The patient was initially admitted to the intermediate care unit after presenting with increased dyspnea with associated atrial fibrillation with rapid ventricular response. The patient is status post cardiac ablation due to atrial flutter, presenting with atrial fibrillation. The patient was initially managed with IV diltiazem with conversion to sinus mechanism. The patient was noted with mild hypomagnesemia, receiving magnesium supplementation as well as potassium supplementation. The patient did receive IV Lovenox x1 dose and transitioned to Eliquis 5 mg b.i.d. The patient was evaluated by the Electrophysiology Service with recommendations to initiate Multaq 400 mg b.i.d. The patient continued on metoprolol in addition to Eliquis and Multaq with maintenance of sinus mechanism through the hospital course. The patient overall remained clinically stable with adjustments to her antiarrhythmics and vital signs remained stable. I have examined the patient at the time of discharge and discussed followup instructions. The patient verbalized understanding and in agreement, ready for discharge on 09/07/2019. DISCHARGE MEDICATIONS: 1. Multaq 400 mg p.o. b.i.d. 2. Eliquis 5 mg p.o. b.i.d. 3. Lipitor 20 mg p.o. at bedtime. 4. Symbicort 2 puffs inhaled b.i.d. 5. Vitamin D3 1000 units p.o. daily. 6. Lasix 40 mg p.o. daily. 7. Glyburide/metformin 2.5/500 mg 2 tablets p.o. b.i.d. 8. Glargine insulin 58 units subcutaneously daily. 9. Zaroxolyn 5 mg p.o. daily. 10. Toprol-XL 25 mg p.o. daily. 11. Omeprazole 10 mg p.o. daily. 12. K-Dur 20 mEq p.o. daily. 13. Tramadol 50 mg p.o. b.i.d. 14. Triamcinolone acetonide 0.025% cream applied to the affected area b.i.d. p.r.n. FOLLOWUP: The patient may follow up with Dr. Brooks on 10/12/2019, at 3:30 pm. The patient may follow up with Dr. Carlson and to call his office for appointment time and date. CONDITION ON DISCHARGE: Stable. ACTIVITY: Ad-jair. DIET: Heart healthy and ADA. CODE STATUS: Full. DISPOSITION: Home on 09/07/2019. TIME SPENT: Total time preparing and coordinating discharge 31 minutes. Job ID: [id number]
--- NOTE | 2019-09-08 05:29 | PQF ---
[employer] Calf Skinner Crystal Reports Winform Viewer ADRIANNE CHILEL CHARLES DO [id number] CLINICAL DOCUMENTATION CLARIFICATION FORM: POST DISCHARGE Addendum to original discharge summary date: ____ Late entry note date: __ DATE: 09/08/19 ATTN: Sawyer Moore Please exercise your independent, professional judgment in responding to the clarification form. Clinical indicators are provided on the bottom of this form for your review Can you please further specify if Pneumonia is ruled in or ruled out? Pneumonia [ ] Ruled in diagnosis [ ] Continue to treat [ ] Resolved [ x ] Ruled out diagnosis [ ] Cannot rule out diagnosis [ ] Other diagnosis please specify [ ] Unable to determine In addition, please specify: Present on Admission (POA): [ ] Yes [ x ] No [ ] Unable to determine For continuity of documentation, please document condition throughout progress notes and discharge summary. Thank You. CLINICAL INDICATORS - SIGNS / SYMPTOMS / LABS ED Notes 09/06 Pneumonia ED Notes 09/06 "presents for evaluation of SOB" ED Notes 09/06 "Patient states she had an ablation done yesterday" HP 09/06 "Acute SOB" Chest Xray 09/05 "Patchy right infrahilar, lower lung zone density could relate to edema or superimposed pneumonitis" RISK FACTORS ED Notes 09/06-64 years old female ED Notes 09/06-COPD ED Notes 09/06-Afib ED Notes 09/06-Former Smoker ED Notes 09/06-Morbid Obesity HP 09/06-s/p cardiac ablation DS 09/07-ELIZ DS 09/07-HTN DS 09/07-CKD stage 3 TREATMENTS Collected 09/05-Chest Xray HP 09/06-Admit to ICU MAR 09/06-Rocephin 2gm IV MAR 09/06- IV Fluids (This form is maintained as a part of the permanent medical record) 2014 [employer]. All Rights Reserved [email or web address] [not provided] MTDD
--- NOTE | 2019-09-08 05:33 | PQF ---
[employer] Floor Runner Crystal Reports Winform Viewer ADRIANNE CHILEL CHARLES DO [id number] CLINICAL DOCUMENTATION CLARIFICATION FORM: POST DISCHARGE Addendum to original discharge summary date: ____ Late entry note date: __ Please query Dr. Brooks regarding A-fib being a complication of ablation since he performed the ablation. Thanks DATE: 09/08/19 ATTN: Cole. Jacques Please exercise your independent, professional judgment in responding to the clarification form. Clinical indicators are provided on the bottom of this form for your review Can you please further specify if Afib as a complication of recent cardiac ablation or not? Please check appropriate box(s): [ ] Atrial fibrillation is a complication of recent cardiac ablation [ ] Atrial fibrillation is not a complication of recent cardiac ablation [ ] Other diagnosis please specify [ ] Unable to determine In addition, please specify: Present on Admission (POA): [ ] Yes [ ] No [ ] Unable to determine CLINICAL INDICATORS - SIGNS / SYMPTOMS / LABS ED Notes 09/06 "presents for evaluation of SOB" ED Notes 09/06 "Patient states she had an ablation done yesterday" HP 09/06 "underwent cardiac ablation yesterday,presented to the ER with SOB and chest tightness" 09/06 "Afib with rapid ventricular response.The patient just had a cardiac ablation yesterday " 09/06 "Acute SOB" RISK FACTORS ED Notes 09/06-64 years old female ED Notes 09/06-COPD ED Notes 09/06-Afib ED Notes 09/06-Former Smoker ED Notes 09/06-Morbid Obesity HP 09/06-s/p cardiac ablation DS 09/07-ELIZ DS 09/07-HTN DS 09/07-CKD stage 3 TREATMENT: Collected 09/05-Chest Xray ED Notes 09/06-EKG HP 09/06-Admit to ICU HP 10/16-Series of cardiac enzyme exam MAR 15-Cardizem 125mg IV (This form is maintained as a part of the permanent medical record) 2014 [employer], [employer]. All Rights Reserved Conor [email or web address] [not provided] MTDD
--- NOTE | 2019-09-09 14:01 | EKG ---
Test Reason : Blood Pressure : / mmHG Vent. Rate : 181 BPM Atrial Rate : 187 BPM P-R Int : 000 ms QRS Dur : 088 ms QT Int : 252 ms P-R-T Axes : 000 043 -70 degrees QTc Int : 437 ms Atrial fibrillation with rapid ventricular response Cannot rule out Inferior infarct , age undetermined Marked ST abnormality, possible lateral subendocardial injury Abnormal ECG Confirmed by DA PIÑA M.D. ([id number]), book editor FELTON DUARTE ([id number]) on 09/09/2019 2:00:58 PM Referred By: Confirmed By:DA PIÑA M.D.
--- NOTE | 2019-09-12 19:56 | PQF ---
[employer] Yarn Rewinder Crystal Reports Winform Viewer EDINSONIVANAADRIANNE DONNA DAMIR BARBOUR [id number] [facility]- B09 [id number] CLINICAL DOCUMENTATION CLARIFICATION FORM: POST DISCHARGE Addendum to original discharge summary date: ____ Late entry note date: 09/18/19 DATE: 09/12/19 ATTN: Damir Steven Please exercise your independent, professional judgment in responding to the clarification form. Clinical indicators are provided on the bottom of this form for your review Can you please further specify if Afib as a complication of recent cardiac ablation or not? Please check appropriate box(s): [ ] Atrial fibrillation is a complication of recent cardiac ablation [x ] Atrial fibrillation is not a complication of recent cardiac ablation [ ] Other diagnosis please specify [ ] Unable to determine In addition, please specify: Present on Admission (POA): [ ] Yes [ ] No [ x ] Unable to determine CLINICAL INDICATORS - SIGNS / SYMPTOMS / LABS ED Notes 09/06 "presents for evaluation of SOB" ED Notes [id number] "Patient states she had an ablation done yesterday" HP 09/06 "underwent cardiac ablation yesterday,presented to the ER with SOB and chest tightness" 09/06 "Afib with rapid ventricular response.The patient just had a cardiac ablation yesterday" 09/06 "Acute SOB" RISK FACTORS ED Notes 09/06-64 years old female ED Notes 09/06-COPD ED Notes 09/06-Afib ED Notes 09/06-Former Smoker ED Notes 09/06-Morbid Obesity HP 09/06- [place] [address] [address]-[place] [address]-KNM stage 3 TREATMENT: Collected 09/05-Chest Xray ED Notes 09/06-EKG HP 09/06-Admit to ICU HP 09/06-Series of cardiac enzyme exam MAR 10/15-Cardizem 125mg IV (This form is maintained as a part of the permanent medical record) 2014 [employer], [employer]. All Rights Reserved [email or web address] [not provided] MTDD
== END 2019-09-07 11:31 | disposition home or self-care (01) | DRG 309 ==
LOC: ERS 22:32 → IMCU/EMU 09-06 00:15
PROVIDERS: ADMIT Internal Medicine; ATTEND Internal Medicine
PROC: 5A09357 Assistance with Respiratory Ventilation, Less than 24 Consecutive Hours, Continuous Positive Airway Pressure (ICD-10-PCS; principal; 2019-09-06)
DX: I48.19 Other persistent atrial fibrillation (principal); Z68.43 Body mass index [BMI] 50.0-59.9, adult; E66.01 Morbid (severe) obesity due to excess calories; E87.6 Hypokalemia; E83.42 Hypomagnesemia; E11.65 Type 2 diabetes mellitus with hyperglycemia; G47.33 Obstructive sleep apnea (adult) (pediatric); J44.9 Chronic obstructive pulmonary disease, unspecified; I48.92 Unspecified atrial flutter; E11.22 Type 2 diabetes mellitus with diabetic chronic kidney disease; I12.9 Hypertensive chronic kidney disease with stage 1 through stage 4 chronic kidney disease, or unspecified chronic kidney disease; N18.3 Chronic kidney disease, stage 3 (moderate); Z98.51 Tubal ligation status; Z88.8 Allergy status to other drugs, medicaments and biological substances; Z79.51 Long term (current) use of inhaled steroids; Z79.4 Long term (current) use of insulin; Z79.899 Other long term (current) drug therapy; Z79.01 Long term (current) use of anticoagulants; Z90.49 Acquired absence of other specified parts of digestive tract; Z87.891 Personal history of nicotine dependence; Z88.5 Allergy status to narcotic agent
CPT/HCPCS: 36415; 36416; 71045; 76942; 80048; 80053; 82553; 83735; 83880; 84443; 84484; 85014; 85018; 85025; 85049; 87040; 92960; 93005; 93613; 93623; 93653; 94660; 94760; 96360; 96365; 96366; 96368; 96372; 96376; C1732; C1769; J0696; J1265; J1644; J1650; J1815; J2001; J2370; J2405; J2704; J3010; J3475; J3480; J3490

== ENCOUNTER 2019-11-08 11:48 | Outpatient (CLI) | payer BC ==
--- NOTE | 2019-11-08 12:12 | RAD ---
XR Chest Pa Lat STANDARD HISTORY: Dyspnea on exertion COMPARISON: 09/05/2019 FINDINGS: The heart size is enlarged. The lungs are well expanded without focal areas of consolidatio n, elier pulmonary edema pneumothorax or pleural effusions. IMPRESSION: No radiographic evidence of acute cardiopulmonary process.
== END 2019-11-08 11:49 | disposition home or self-care (01) ==
LOC: BICRAD 11:48
PROVIDERS: ATTEND Internal Medicine Cardiovascular Disease
DX: R06.09 Other forms of dyspnea (principal)
CPT/HCPCS: 71046

== ENCOUNTER 2020-07-12 12:02 | Outpatient (CLI) | payer MEDICARE, OTHER ==
[2020-07-12 17:12] LABS: ALT (SGPT) 16 U/L (8-55); AST (SGOT) 17 U/L (5-34); Albumin 4.1 g/dL (3.4-4.8); Alkaline Phosphatase 91 U/L (40-110); Anion Gap 17 mmol/L (10-20); Anisocytosis SLIGHT = 6-15 cells (100X) (0-5/hpf); BUN (Urea Nitrogen) 26 mg/dL (9.8-20.1); Bilirubin, Total 0.4 mg/dL (0.2-1.2); Calc. Creatinine Clearance 0 mL/min (70-130); Calcium 9.3 mg/dL (7.8-10.44); Carbon Dioxide 32 mmol/L (23-31); Chloride 87 mmol/L (98-107); Estimated GFR-MDRD 34; Globulin 3.9 g/dL (2.4-3.5); Glucose 403 mg/dL (80-115); Hypochromia SLIGHT = 6-15 cells (100X) (0-5/hpf); Large Platelets SLIGHT; MDiff Complete? YES; Platelet Clumps SLIGHT; Platelet Morphology Comment Appears Adequate; Potassium 3.1 mmol/L (3.5-5.1); Sodium 133 mmol/L (136-145)
[2020-07-12 17:13] LABS: #Basophils 0.1 thou/uL (0.0-0.2); #Eosinphils 0.5 thou/uL (0.0-0.7); #Lymphocytes 2.8 thou/uL (1.20-3.40); #Monocytes 0.9 thou/uL (0.11-0.59); #Neutrophils 5.7 thou/uL (1.40-6.50); %Basophils 0.6 % (0.0-1.0); %Eosinophils 5.1 % (0.0-10.0); %Lymphocytes 28.6 % (21.0-51.0); %Monocytes 8.5 % (0.0-10.0); %Neutrophils 57.2 % (42.0-75.0); Hemoglobin 12.8 g/dL (12.0-16.0); Mean Corpuscular HGB CONC 31.7 g/dL (32.0-36.0); Mean Corpuscular Hemoglobin 26.6 pg (27.0-31.0); Mean Platelet Volume 11.4 fL (7.4-10.4); Platelet Count 207 thou/uL (130-400); Red Blood Cell (RBC) Count 4.81 mill/uL (4.20-5.40)
[2020-07-13 14:06] LABS: SARS-CoV-2 MS2 Positive; SARS-CoV-2 N Gene Negative; SARS-CoV-2 S Gene Negative; SARS-CoV-2 by NAA Not Detected (NotDetected); SARS-CoV-2 orf1ab Negative
== END 2020-07-12 12:03 | disposition home or self-care (01) ==
LOC: LABBT 12:02
PROVIDERS: ATTEND Internal Medicine Cardiovascular Disease
DX: Z01.812 Encounter for preprocedural laboratory examination (principal); R06.00 Dyspnea, unspecified; Z20.828 Contact with and (suspected) exposure to other viral communicable diseases
CPT/HCPCS: 80053; 85025; U0003; 87635

== ENCOUNTER 2020-09-05 15:35 | Outpatient (CLI) | payer MEDICARE ==
--- NOTE | 2020-09-05 16:12 | RAD ---
CHEST 2 VIEWS: Date: 09/05/2020 HISTORY: Dyspnea. COMPARISON: 11/08/2019. FINDINGS: Heart size is within normal limits. The bronchovascular markings are slightly prominent, but stable f rom prior study. No confluent pneumonia, overt edema, or pleural effusion. IMPRESSION: No significant acute intrathoracic disease. Stable from prior study. POS: OFF
== END 2020-09-05 15:36 | disposition home or self-care (01) ==
LOC: BICRAD 15:35
PROVIDERS: ATTEND Internal Medicine Pulmonary Disease
DX: R06.00 Dyspnea, unspecified (principal)
CPT/HCPCS: 71046

== ENCOUNTER 2022-05-27 13:43 | Outpatient (CLI) | payer MEDICARE | END 2022-05-27 13:44 | disposition home or self-care (01) | LOC: BICRAD 13:43 | PROVIDERS: ATTEND Family Medicine | DX: R06.02 Shortness of breath (principal); I51.7 Cardiomegaly; I87.8 Other specified disorders of veins; R59.0 Localized enlarged lymph nodes | CPT/HCPCS: 71046 ==

== ENCOUNTER 2022-09-15 10:11 | Outpatient (CLI) | payer MEDICARE ==
[2022-09-15 11:52] LABS: #Basophils 0.1 10x3/uL (0.0-0.2); #Eosinphils 0.3 10x3/uL (0.0-0.5); #Monocytes 0.8 10x3/uL (0.0-1.1); #Neutrophils 6.6 10x3/uL (1.5-8.4); %Basophils 0.7 % (0.0-2.0); %Eosinophils 3.2 % (0.0-6.0); %Lymphocytes 12.3 % (18.0-47.0); %Monocytes 9.1 % (0.0-10.0); %Neutrophils 74.4 % (40.0-75.0); Mean Corpuscular HGB CONC 32.7 g/dL (32.0-36.0); Mean Corpuscular Hemoglobin 29.8 pg (27.0-33.0); Mean Corpuscular Volume 91.1 fl (81.6-98.3); Mean Platelet Volume 12.1 fl (7.4-10.4); Platelet Count 268 10x3/uL (150-450); RBC Distribution Width 15.2 % (11.5-14.5); Red Blood Cell (RBC) Count 4.36 10x6/uL (3.90-5.03); White Blood Cell (WBC) Count 8.9 10x3/uL (3.5-10.5)
[2022-09-15 12:01] LABS: Anion Gap 20 mmol/L (10-20); BUN (Urea Nitrogen) 33 mg/dL (9.8-20.1); Calc. Creatinine Clearance 0 mL/min (70-130); Calcium 9.8 mg/dL (7.8-10.44); Carbon Dioxide 28 mmol/L (23-31); Chloride 92 mmol/L (98-107); Estimated GFR 27; Glucose 193 mg/dL (80-115); Potassium 3.8 mmol/L (3.5-5.1); Sodium 136 mmol/L (136-145)
[2022-09-15 12:04] LABS: INR-International Normal Ratio 1.1; PTT 42.4 sec (22.0-33.0); Prothrombin Time 12.1 sec (9.5-12.1)
== END 2022-09-15 10:12 | disposition home or self-care (01) ==
LOC: LABBT 10:11
PROVIDERS: ATTEND Orthopaedic Surgery
DX: Z01.818 Encounter for other preprocedural examination (principal); M75.121 Complete rotator cuff tear or rupture of right shoulder, not specified as traumatic; R35.89 Other polyuria
CPT/HCPCS: 80048; 81001; 85025; 85610; 85730; 93005; 93010

== ENCOUNTER 2022-10-15 23:24 | Inpatient (IN) | payer MEDICARE ==
[2022-10-16 01:57] VITALS: BMI 42.7
[2022-10-16 03:10] LABS: Troponin I 0.055 ng/mL (< 0.028)
[2022-10-16] MEDS ORDERED: Ketorolac Tromethamine 30 MG/ML VIAL IVP PRN (03:40)
[2022-10-16] MEDS ORDERED: Ondansetron PF 4 MG/2 ML Vial IVP PRN (03:48)
[2022-10-16] MEDS ORDERED: Acetaminophen 650 MG Suppository PR PRN (03:48)
[2022-10-16] MEDS ORDERED: Acetaminophen 325 MG TAB PO PRN (03:48)
[2022-10-16] MEDS ORDERED: Ondansetron ODT 4 MG TAB PO PRN (03:48)
[2022-10-16 05:25] LABS: #Eosinphils 0.4 thou/uL (0.0-0.7); #Monocytes 1.2 thou/uL (0.11-0.59); #Neutrophils 8.6 thou/uL (1.40-6.50); %Basophils 0.1 % (0.0-1.0); %Eosinophils 3.3 % (0.0-10.0); %Lymphocytes 9.2 % (21.0-51.0); %Monocytes 10.5 % (0.0-10.0); %Neutrophils 76.9 % (42.0-75.0); Hemoglobin 11.4 g/dL (12.0-16.0); Mean Corpuscular HGB CONC 31.7 g/dL (32.0-36.0); Mean Corpuscular Hemoglobin 30.2 pg (27.0-31.0); Mean Corpuscular Volume 95.4 fl (78.0-98.0); Mean Platelet Volume 10.2 fL (7.4-10.4); Platelet Count 203 10x3/uL (130-400); RBC Distribution Width 15.3 % (11.5-14.5); Red Blood Cell (RBC) Count 3.77 mill/uL (4.20-5.40); White Blood Cell (WBC) Count 11.2 10x3/uL (4.8-10.8)
[2022-10-16] MEDS: Sodium Chloride 0.9% 1,000 ML IV SCH ×2 (05:35→14:35)
[2022-10-16 05:49] LABS: Anion Gap 19 mmol/L (10-20); BUN (Urea Nitrogen) 46 mg/dL (9.8-20.1); Calc. Creatinine Clearance 29 mL/min (70-130); Calcium 9.2 mg/dL (7.8-10.44); Carbon Dioxide 24 mmol/L (23-31); Chloride 85 mmol/L (98-107); Estimated GFR 16; Glucose 150 mg/dL (80-115); Potassium 3.5 mmol/L (3.5-5.1); Sodium 124 mmol/L (136-145)
[2022-10-16 05:53] LABS: Troponin I 0.044 ng/mL (< 0.028)
[2022-10-16] MEDS ORDERED: Colchicine 0.6 MG TAB PO SCH ×2 (06:00→07:00)
[2022-10-16] MEDS ORDERED: Dextrose 5% in Water 1,000 ML IV PRN (06:24)
[2022-10-16] MEDS ORDERED: HumaLOG 300 UNITS/3 ML VIAL SC PRN ×2 (06:24)
[2022-10-16] MEDS ORDERED: Dextrose 50% Abboject 50 ML SYRINGE SLOW IVP PRN (06:24)
[2022-10-16] MEDS ORDERED: Piperacillin/Tazobactam 3.375 GM in Sodium Chloride 0.9% 100 ML IVPB SCH (08:00)
[2022-10-16] MEDS ORDERED: Pantoprazole 40 MG VIAL IVP SCH (09:00)
[2022-10-16] MEDS ORDERED: traMADol HCl 50 MG TAB PO SCH ×2 (09:00→21:00)
[2022-10-16] MEDS ORDERED: Gabapentin 100 MG CAP PO SCH (11:15)
[2022-10-16] MEDS: Piperacillin/Tazobactam 3.375 GM in Sodium Chloride 0.9% 100 ML IVPB SCH (11:45)
[2022-10-16 12:05] LABS: Bacteria/HPF None Seen HPF (None Seen); Bilirubin Negative (Negative); Blood, Urine Negative (Negative); Clarity Clear (Clear); Glucose, Urine (Dipstick) Normal (Negative); Ketone, Urine Negative (Negative); Leukocyte Negative Leu/uL (Negative); Nitrite Negative (Negative); Protein, Urine (Dipstick) 20 mg/dL (Neg-Trace); RBC/HPF 0-3 HPF (0-3); Specific Gravity, Urine 1.008 (1.002-1.036); Squamous Epithelial 0-3 HPF (0-3); Urobilinogen Normal mg/dL (Less than 2); WBC/HPF 0-3 HPF (0-3)
[2022-10-16 13:31] LABS: Creatinine, Urine 30.79 mg/dL (47-110)
[2022-10-16] MEDS: traMADol HCl 50 MG TAB PO SCH ×2 (14:35→21:26)
[2022-10-16] MEDS: Dronedarone HCl 400 MG TAB PO SCH (16:33)
[2022-10-16] MEDS: Doxycycline 100 MG in Sodium Chloride 0.9% 100 ML IVPB SCH (16:33)
[2022-10-16] MEDS: Atorvastatin Calcium 20 MG TAB PO SCH (21:24)
[2022-10-16] MEDS: Dabigatran 150 mg Capsule PO SCH (21:24)
[2022-10-16] MEDS: Gabapentin 100 MG CAP PO SCH (21:26)
[2022-10-16 22:08] LABS: Albumin 3.5 g/dL (3.4-4.8); Anion Gap 17 mmol/L (10-20); BUN (Urea Nitrogen) 39 mg/dL (9.8-20.1); BUN/Creatinine Ratio 16.96; Calc. Creatinine Clearance 40 mL/min (70-130); Calcium 9.2 mg/dL (7.8-10.44); Carbon Dioxide 24 mmol/L (23-31); Chloride 90 mmol/L (98-107); Estimated GFR 23; Glucose 106 mg/dL (80-115); Phosphorus 3.8 mg/dL (2.3-4.7); Potassium 3.5 mmol/L (3.5-5.1); Sodium 127 mmol/L (136-145)
[2022-10-17] MEDS: Piperacillin/Tazobactam 3.375 GM in Sodium Chloride 0.9% 100 ML IVPB SCH (00:17)
[2022-10-17] MEDS: Sodium Chloride 0.9% 1,000 ML IV SCH ×3 (00:27→11:13)
[2022-10-17 05:07] LABS: #Eosinphils 0.4 thou/uL (0.0-0.7); #Lymphocytes 0.7 thou/uL (1.20-3.40); #Monocytes 1.2 thou/uL (0.11-0.59); %Eosinophils 4.1 % (0.0-10.0); %Lymphocytes 7.1 % (21.0-51.0); %Monocytes 11.7 % (0.0-10.0); %Neutrophils 77.2 % (42.0-75.0); Hemoglobin 11.1 g/dL (12.0-16.0); Mean Corpuscular HGB CONC 31.9 g/dL (32.0-36.0); Mean Corpuscular Hemoglobin 30.1 pg (27.0-31.0); Mean Corpuscular Volume 94.5 fl (78.0-98.0); Mean Platelet Volume 9.8 fL (7.4-10.4); Platelet Count 194 10x3/uL (130-400); RBC Distribution Width 14.9 % (11.5-14.5); Red Blood Cell (RBC) Count 3.69 mill/uL (4.20-5.40); White Blood Cell (WBC) Count 10.4 10x3/uL (4.8-10.8)
[2022-10-17] MEDS: Doxycycline 100 MG in Sodium Chloride 0.9% 100 ML IVPB SCH ×2 (05:24→16:41)
[2022-10-17 05:26] LABS: Anion Gap 16 mmol/L (10-20); BUN (Urea Nitrogen) 35 mg/dL (9.8-20.1); Calc. Creatinine Clearance 45 mL/min (70-130); Calcium 9.3 mg/dL (7.8-10.44); Carbon Dioxide 26 mmol/L (23-31); Chloride 92 mmol/L (98-107); Estimated GFR 27; Glucose 125 mg/dL (80-115); Potassium 3.5 mmol/L (3.5-5.1); Sodium 130 mmol/L (136-145)
[2022-10-17] MEDS: traMADol HCl 50 MG TAB PO SCH ×3 (05:33→19:58)
[2022-10-17] MEDS: Dronedarone HCl 400 MG TAB PO SCH ×2 (09:27→16:40)
[2022-10-17] MEDS: Gabapentin 100 MG CAP PO SCH ×2 (09:27→19:57)
[2022-10-17] MEDS: Dabigatran 150 mg Capsule PO SCH ×2 (09:27→19:57)
[2022-10-17] MEDS: Saccharomyces boulardii 250 MG CAP PO SCH (11:12)
[2022-10-17] MEDS: Mometasone 100 MCG/PUFF (1 INHALER) INH SCH (18:22)
[2022-10-17] MEDS: Docusate 100 MG CAP PO SCH (19:51)
[2022-10-17] MEDS: Acetaminophen 500 MG TAB PO SCH (19:57)
[2022-10-17] MEDS: Atorvastatin Calcium 20 MG TAB PO SCH (19:58)
[2022-10-18] MEDS: Sodium Chloride 0.9% 1,000 ML IV SCH (03:26)
[2022-10-18] MEDS: Doxycycline 100 MG in Sodium Chloride 0.9% 100 ML IVPB SCH (05:14)
[2022-10-18] MEDS: traMADol HCl 50 MG TAB PO SCH (05:14)
[2022-10-18 05:39] LABS: #Eosinphils 0.2 thou/uL (0.0-0.7); #Monocytes 0.9 thou/uL (0.11-0.59); #Neutrophils 5.9 thou/uL (1.40-6.50); %Basophils 0.1 % (0.0-1.0); %Eosinophils 2.7 % (0.0-10.0); %Lymphocytes 12.7 % (21.0-51.0); %Monocytes 10.6 % (0.0-10.0); %Neutrophils 73.9 % (42.0-75.0); Hemoglobin 10.7 g/dL (12.0-16.0); Mean Corpuscular HGB CONC 32.2 g/dL (32.0-36.0); Mean Corpuscular Hemoglobin 30.2 pg (27.0-31.0); Mean Platelet Volume 9.8 fL (7.4-10.4); Platelet Count 186 10x3/uL (130-400); RBC Distribution Width 14.8 % (11.5-14.5); Red Blood Cell (RBC) Count 3.55 mill/uL (4.20-5.40)
[2022-10-18 05:54] LABS: Anion Gap 14 mmol/L (10-20); BUN (Urea Nitrogen) 26 mg/dL (9.8-20.1); Calc. Creatinine Clearance 61 mL/min (70-130); Calcium 8.8 mg/dL (7.8-10.44); Carbon Dioxide 23 mmol/L (23-31); Chloride 95 mmol/L (98-107); Estimated GFR 36; Glucose 160 mg/dL (80-115); Potassium 3.1 mmol/L (3.5-5.1); Sodium 129 mmol/L (136-145)
[2022-10-18] MEDS: Mometasone 100 MCG/PUFF (1 INHALER) INH SCH (06:50)
[2022-10-18] MEDS ORDERED: Ferrous Sulfate 325 MG TAB PO SCH (08:00)
[2022-10-18] MEDS ORDERED: Allopurinol 100 MG TAB PO SCH (09:00)
[2022-10-18] MEDS ORDERED: Colchicine 0.6 MG TAB PO SCH (09:00)
[2022-10-18] MEDS ORDERED: Non-Formulary Item 1 EACH (Fluticasone/Umeclidin/Vilanter [Trelegy Ellipta 200-62.5-25] 1 INH SCH (09:00)
[2022-10-18] MEDS ORDERED: Insulin Glargine 30 UNITS/0.3 ML VIAL SC SCH (09:00)
[2022-10-18] MEDS: Acetaminophen 500 MG TAB PO SCH (09:19)
[2022-10-18] MEDS: Docusate 100 MG CAP PO SCH (09:20)
[2022-10-18] MEDS: Dabigatran 150 mg Capsule PO SCH (09:20)
[2022-10-18] MEDS: Gabapentin 100 MG CAP PO SCH (09:20)
[2022-10-18] MEDS: Dronedarone HCl 400 MG TAB PO SCH (09:20)
[2022-10-18 11:47] VITALS: BP 129/68; TEMP 97.5
[2022-10-18] MEDS: Saccharomyces boulardii 250 MG CAP PO SCH (12:14)
== END 2022-10-18 13:34 | disposition home or self-care (01) | DRG 643 ==
LOC: INTOOBSV 10-16 01:22 → 2SW 10-16 01:22 → OBSVTOIN 10-16 09:17
PROVIDERS: ADMIT Family Medicine; ATTEND Family Medicine
DX: E22.2 Syndrome of inappropriate secretion of antidiuretic hormone (principal); J15.9 Unspecified bacterial pneumonia; K52.1 Toxic gastroenteritis and colitis; N30.00 Acute cystitis without hematuria; J44.0 Chronic obstructive pulmonary disease with (acute) lower respiratory infection; J96.11 Chronic respiratory failure with hypoxia; N18.4 Chronic kidney disease, stage 4 (severe); E11.22 Type 2 diabetes mellitus with diabetic chronic kidney disease; M10.9 Gout, unspecified; I48.91 Unspecified atrial fibrillation; M19.90 Unspecified osteoarthritis, unspecified site; T36.95XA Adverse effect of unspecified systemic antibiotic, initial encounter; B96.20 Unspecified Escherichia coli [E. coli] as the cause of diseases classified elsewhere; Z99.81 Dependence on supplemental oxygen; Z88.6 Allergy status to analgesic agent; Z88.1 Allergy status to other antibiotic agents; Z79.4 Long term (current) use of insulin; Z79.899 Other long term (current) drug therapy; Z79.51 Long term (current) use of inhaled steroids; Z79.84 Long term (current) use of oral hypoglycemic drugs; Z90.49 Acquired absence of other specified parts of digestive tract; Z87.891 Personal history of nicotine dependence; Z79.01 Long term (current) use of anticoagulants
CPT/HCPCS: 36415; 36416; 80048; 81001; 82550; 82570; 83930; 83935; 84156; 84300; 84484; 84540; 85025; 94640; 96374; 96375; C9113; G0378; J2543; J3490; J7050; J7620

== ENCOUNTER 2023-01-28 11:46 | Inpatient (IN) | payer MEDICARE ==
[2023-01-28] MEDS ORDERED: Magnesium 2 GM/50 ML(in water) 2 GM in Premix Bag 1 BAG IVPB SCH (14:18)
[2023-01-28] MEDS ORDERED: Dextrose 50% Abboject 50 ML SYRINGE SLOW IVP PRN (14:18)
[2023-01-28] MEDS ORDERED: Calcium Carbonate 500 MG ChewTAB PO PRN (14:18)
[2023-01-28] MEDS ORDERED: Senokot S 8.6-50 MG TAB PO PRN (14:18)
[2023-01-28] MEDS ORDERED: Electrolyte Replacement Protocol 1 EACH FS SCH (14:18)
[2023-01-28] MEDS ORDERED: Benzonatate 100 MG CAP PO PRN (14:18)
[2023-01-28] MEDS ORDERED: Albuterol 200 PUFF (6.7GM INHALER) INH PRN ×2 (14:18→14:25)
[2023-01-28] MEDS ORDERED: Acetaminophen 325 MG TAB PO PRN ×2 (14:18→17:00)
[2023-01-28] MEDS ORDERED: Dextrose 5% in Water 1,000 ML IV PRN (14:18)
[2023-01-28] MEDS ORDERED: methylPREDNISolone Sod Succ 40 MG VIAL IVP SCH ×2 (14:30→18:00)
[2023-01-28] MEDS ORDERED: Albuterol 200 PUFF (6.7GM INHALER) INH SCH (14:30)
[2023-01-28 15:55] LABS: Anion Gap 13 mmol/L (10-20); BUN (Urea Nitrogen) 20 mg/dL (9.8-20.1); CRP (Inflammatory) 11.37 mg/dL (= or < 0.5); Calc. Creatinine Clearance 0 mL/min (70-130); Carbon Dioxide 24 mmol/L (23-31); Chloride 97 mmol/L (98-107); Estimated GFR 39; Glucose 239 mg/dL (80-115); Sodium 130 mmol/L (136-145)
[2023-01-28] MEDS ORDERED: traMADol HCl 50 MG TAB PO PRN (16:13)
[2023-01-28] MEDS: Insulin Regular 300 UNITS/3 ML VIAL SC PRN (17:00)
[2023-01-28] MEDS: Dronedarone HCl 400 MG TAB PO SCH (17:00)
[2023-01-28] MEDS: Albuterol 200 PUFF (6.7GM INHALER) INH SCH (17:00)
[2023-01-28 17:30] VITALS: BMI 38.9
[2023-01-28] MEDS ORDERED: Cepastat Lozenges 1 LOZ PO PRN (17:50)
[2023-01-28] MEDS: Mometasone 200 MCG/Formoterol 5 MCG 120 PUFF INHALER INH SCH (19:02)
[2023-01-28] MEDS: Atorvastatin Calcium 20 MG TAB PO SCH (22:25)
[2023-01-28] MEDS: Dabigatran 150 mg Capsule PO SCH (22:25)
[2023-01-28] MEDS: Zinc Sulfate 220 MG CAP PO SCH (22:25)
[2023-01-28] MEDS: Docusate 100 MG CAP PO SCH (22:26)
[2023-01-28] MEDS: guaiFENesin ER 600 MG TAB PO SCH (22:26)
[2023-01-28] MEDS: Folic Acid/Vit B Comp W-C PO SCH (22:26)
[2023-01-28] MEDS: Gabapentin 100 MG CAP PO SCH (22:26)
[2023-01-28] MEDS: Cholecalciferol 1,000 UNITS (25 MCG) TAB PO SCH (22:27)
[2023-01-28] MEDS: Doxycycline 100 MG CAP PO SCH (22:27)
[2023-01-28] MEDS: Acetaminophen 500 MG TAB PO SCH (22:27)
[2023-01-29] MEDS: Albuterol 200 PUFF (6.7GM INHALER) INH SCH ×4 (02:17→17:21)
[2023-01-29] MEDS: cefTRIAXone\\ROCEPHIN 2 GM in Sodium Chloride 0.9% 100 ML IVPB SCH (02:58)
[2023-01-29 05:04] LABS: #Lymphocytes 0.5 thou/uL (1.20-3.40); #Monocytes 0.6 thou/uL (0.11-0.59); #Neutrophils 2.9 thou/uL (1.40-6.50); %Basophils 0.1 % (0.0-1.0); %Eosinophils 0.2 % (0.0-10.0); %Lymphocytes 12.5 % (21.0-51.0); %Monocytes 14.4 % (0.0-10.0); %Neutrophils 72.7 % (42.0-75.0); Mean Corpuscular HGB CONC 33.2 g/dL (32.0-36.0); Mean Corpuscular Hemoglobin 31.5 pg (27.0-31.0); Mean Corpuscular Volume 94.7 fl (78.0-98.0); Mean Platelet Volume 10.3 fL (7.4-10.4); Platelet Count 137 10x3/uL (130-400); RBC Distribution Width 14.7 % (11.5-14.5); Red Blood Cell (RBC) Count 3.82 mill/uL (4.20-5.40)
[2023-01-29 05:21] LABS: ALT (SGPT) 12 U/L (8-55); AST (SGOT) 22 U/L (5-34); Albumin 3.2 g/dL (3.4-4.8); Alkaline Phosphatase 65 U/L (40-110); Anion Gap 14 mmol/L (10-20); BUN (Urea Nitrogen) 24 mg/dL (9.8-20.1); Bilirubin, Total 0.5 mg/dL (0.2-1.2); CRP (Inflammatory) 8.49 mg/dL (= or < 0.5); Calc. Creatinine Clearance 62 mL/min (70-130); Calcium 8.7 mg/dL (7.8-10.44); Carbon Dioxide 21 mmol/L (23-31); Chloride 96 mmol/L (98-107); Estimated GFR 39; Globulin 3.2 g/dL (2.4-3.5); Glucose 312 mg/dL (80-115); Magnesium 2.2 mg/dL (1.6-2.6); Phosphorus 3.7 mg/dL (2.3-4.7); Potassium 4.4 mmol/L (3.5-5.1); Protein, Total 6.4 g/dL (5.8-8.1); Sodium 127 mmol/L (136-145)
[2023-01-29] MEDS: Insulin Regular 300 UNITS/3 ML VIAL SC PRN ×4 (05:37→20:57)
[2023-01-29] MEDS ORDERED: Potassium Chloride 20 MEQ TAB PO SCH (08:00)
[2023-01-29] MEDS: Dabigatran 150 mg Capsule PO SCH ×2 (09:22→20:35)
[2023-01-29] MEDS: Acetaminophen 500 MG TAB PO SCH ×2 (09:22→20:34)
[2023-01-29] MEDS: Docusate 100 MG CAP PO SCH ×2 (09:23→20:35)
[2023-01-29] MEDS: Doxycycline 100 MG CAP PO SCH ×2 (09:23→20:36)
[2023-01-29] MEDS: Gabapentin 100 MG CAP PO SCH ×3 (09:23→20:36)
[2023-01-29] MEDS: Multivit, Therapeutic 1 TAB PO SCH (09:23)
[2023-01-29] MEDS: Dexamethasone 4 mg/ml Vial SLOW IVP SCH (09:23)
[2023-01-29] MEDS: pyridOXINE 50 MG (B6) TAB PO SCH (09:23)
[2023-01-29] MEDS: guaiFENesin ER 600 MG TAB PO SCH ×2 (09:23→20:36)
[2023-01-29] MEDS: Furosemide 40 MG TAB PO SCH (09:23)
[2023-01-29] MEDS: Dronedarone HCl 400 MG TAB PO SCH ×2 (09:23→17:18)
[2023-01-29] MEDS: Insulin Glargine 30 UNITS/0.3 ML VIAL SC SCH (09:24)
[2023-01-29] MEDS: Mometasone 200 MCG/Formoterol 5 MCG 120 PUFF INHALER INH SCH ×2 (09:24→17:20)
[2023-01-29] MEDS ORDERED: REMDESIVIR 200 MG in Sodium Chloride 0.9% 250 ML 210 ML IV SCH (12:00)
[2023-01-29] MEDS: Folic Acid/Vit B Comp W-C PO SCH (20:35)
[2023-01-29] MEDS: Cholecalciferol 1,000 UNITS (25 MCG) TAB PO SCH (20:35)
[2023-01-29] MEDS: Zinc Sulfate 220 MG CAP PO SCH (20:35)
[2023-01-29] MEDS: Atorvastatin Calcium 20 MG TAB PO SCH (20:35)
[2023-01-30] MEDS: cefTRIAXone\\ROCEPHIN 2 GM in Sodium Chloride 0.9% 100 ML IVPB SCH (01:32)
[2023-01-30] MEDS: Albuterol 200 PUFF (6.7GM INHALER) INH SCH ×4 (01:33→18:25)
[2023-01-30 05:06] LABS: #Lymphocytes 1.3 thou/uL (1.20-3.40); #Monocytes 0.8 thou/uL (0.11-0.59); #Neutrophils 5.3 thou/uL (1.40-6.50); %Basophils 0.1 % (0.0-1.0); %Eosinophils 0.2 % (0.0-10.0); %Lymphocytes 17.5 % (21.0-51.0); %Monocytes 10.5 % (0.0-10.0); %Neutrophils 71.7 % (42.0-75.0); Mean Corpuscular HGB CONC 32.2 g/dL (32.0-36.0); Mean Corpuscular Hemoglobin 30.6 pg (27.0-31.0); Mean Corpuscular Volume 95.1 fl (78.0-98.0); Mean Platelet Volume 9.6 fL (7.4-10.4); Platelet Count 194 10x3/uL (130-400); RBC Distribution Width 14.5 % (11.5-14.5); Red Blood Cell (RBC) Count 4.25 mill/uL (4.20-5.40); White Blood Cell (WBC) Count 7.4 10x3/uL (4.8-10.8)
[2023-01-30 05:16] LABS: Anion Gap 16 mmol/L (10-20); BUN (Urea Nitrogen) 31 mg/dL (9.8-20.1); Calc. Creatinine Clearance 63 mL/min (70-130); Carbon Dioxide 22 mmol/L (23-31); Chloride 100 mmol/L (98-107); Sodium 134 mmol/L (136-145)
[2023-01-30 05:17] LABS: CRP (Inflammatory) 5.44 mg/dL (= or < 0.5); Calcium 9.2 mg/dL (7.8-10.44); Estimated GFR 40; Glucose 132 mg/dL (80-115)
[2023-01-30] MEDS: Mometasone/Formoterol 200/5 60 PUFF INH SCH ×2 (06:09→16:26)
[2023-01-30] MEDS: Dronedarone HCl 400 MG TAB PO SCH ×2 (08:29→16:27)
[2023-01-30] MEDS: Potassium Chloride 20 MEQ TAB PO SCH (08:29)
[2023-01-30] MEDS: Acetaminophen 500 MG TAB PO SCH ×2 (08:29→21:56)
[2023-01-30] MEDS: Dabigatran 150 mg Capsule PO SCH ×2 (08:30→21:56)
[2023-01-30] MEDS: Dexamethasone 4 mg/ml Vial SLOW IVP SCH (08:30)
[2023-01-30] MEDS: Doxycycline 100 MG CAP PO SCH ×2 (08:30→21:56)
[2023-01-30] MEDS: Docusate 100 MG CAP PO SCH ×2 (08:30→21:56)
[2023-01-30] MEDS: Furosemide 40 MG TAB PO SCH (08:30)
[2023-01-30] MEDS: guaiFENesin ER 600 MG TAB PO SCH ×2 (08:31→21:56)
[2023-01-30] MEDS: Gabapentin 100 MG CAP PO SCH ×3 (08:31→21:56)
[2023-01-30] MEDS: pyridOXINE 50 MG (B6) TAB PO SCH (08:31)
[2023-01-30] MEDS: Multivit, Therapeutic 1 TAB PO SCH (08:31)
[2023-01-30] MEDS: Insulin Glargine 30 UNITS/0.3 ML VIAL SC SCH (08:31)
[2023-01-30] MEDS: REMDESIVIR 100 MG in Sodium Chloride 0.9% 250 ML 230 ML IV SCH (08:32)
[2023-01-30] MEDS: Insulin Regular 300 UNITS/3 ML VIAL SC PRN ×2 (12:50→22:30)
[2023-01-30] MEDS: Atorvastatin Calcium 20 MG TAB PO SCH (21:56)
[2023-01-30] MEDS: Cholecalciferol 1,000 UNITS (25 MCG) TAB PO SCH (21:56)
[2023-01-30] MEDS: Folic Acid/Vit B Comp W-C PO SCH (21:56)
[2023-01-30] MEDS: Zinc Sulfate 220 MG CAP PO SCH (21:56)
[2023-01-31] MEDS: cefTRIAXone\\ROCEPHIN 2 GM in Sodium Chloride 0.9% 100 ML IVPB SCH (01:05)
[2023-01-31] MEDS: Albuterol 200 PUFF (6.7GM INHALER) INH SCH ×4 (01:35→18:36)
[2023-01-31] MEDS: Mometasone/Formoterol 200/5 60 PUFF INH SCH ×2 (06:27→18:36)
[2023-01-31 09:18] LABS: ALT (SGPT) 17 U/L (8-55); AST (SGOT) 23 U/L (5-34); Albumin 3.4 g/dL (3.4-4.8); Alkaline Phosphatase 67 U/L (40-110); Anion Gap 13 mmol/L (10-20); BUN (Urea Nitrogen) 32 mg/dL (9.8-20.1); Bilirubin, Total 0.4 mg/dL (0.2-1.2); Calc. Creatinine Clearance 67 mL/min (70-130); Carbon Dioxide 30 mmol/L (23-31); Chloride 101 mmol/L (98-107); Estimated GFR 43; Globulin 3.2 g/dL (2.4-3.5); Glucose 97 mg/dL (80-115); Potassium 3.5 mmol/L (3.5-5.1); Protein, Total 6.6 g/dL (5.8-8.1); Sodium 140 mmol/L (136-145)
[2023-01-31] MEDS: REMDESIVIR 100 MG in Sodium Chloride 0.9% 250 ML 230 ML IV SCH (09:39)
[2023-01-31] MEDS: Dexamethasone 4 mg/ml Vial SLOW IVP SCH (09:40)
[2023-01-31] MEDS: Gabapentin 100 MG CAP PO SCH ×4 (09:41→20:57)
[2023-01-31] MEDS: Doxycycline 100 MG CAP PO SCH ×2 (09:42→20:51)
[2023-01-31] MEDS: pyridOXINE 50 MG (B6) TAB PO SCH (09:42)
[2023-01-31] MEDS: Acetaminophen 500 MG TAB PO SCH ×2 (09:43→20:53)
[2023-01-31] MEDS: Dronedarone HCl 400 MG TAB PO SCH ×2 (09:44→17:07)
[2023-01-31] MEDS: guaiFENesin ER 600 MG TAB PO SCH ×2 (09:44→20:53)
[2023-01-31] MEDS: Potassium Chloride 20 MEQ TAB PO SCH (09:44)
[2023-01-31] MEDS: Furosemide 40 MG TAB PO SCH (09:44)
[2023-01-31] MEDS: Docusate 100 MG CAP PO SCH ×2 (09:45→20:53)
[2023-01-31] MEDS: Multivit, Therapeutic 1 TAB PO SCH (09:45)
[2023-01-31] MEDS: Dabigatran 150 mg Capsule PO SCH ×2 (10:01→20:53)
[2023-01-31] MEDS: Insulin Glargine 30 UNITS/0.3 ML VIAL SC SCH (10:02)
[2023-01-31] MEDS ORDERED: Potassium Chloride 20 MEQ TAB PO SCH (12:15)
[2023-01-31] MEDS: traMADol HCl 50 MG TAB PO SCH ×2 (14:36→20:53)
[2023-01-31] MEDS: Insulin Regular 300 UNITS/3 ML VIAL SC PRN ×2 (17:07→20:54)
[2023-01-31] MEDS: Atorvastatin Calcium 20 MG TAB PO SCH (20:53)
[2023-01-31] MEDS: Zinc Sulfate 220 MG CAP PO SCH (20:53)
[2023-01-31] MEDS: Cholecalciferol 1,000 UNITS (25 MCG) TAB PO SCH (20:53)
[2023-01-31] MEDS: Folic Acid/Vit B Comp W-C PO SCH (20:53)
[2023-02-01] MEDS: Albuterol 200 PUFF (6.7GM INHALER) INH SCH ×4 (01:50→21:40)
[2023-02-01] MEDS: cefTRIAXone\\ROCEPHIN 2 GM in Sodium Chloride 0.9% 100 ML IVPB SCH (01:50)
[2023-02-01] MEDS: Mometasone/Formoterol 200/5 60 PUFF INH SCH ×2 (05:55→21:40)
[2023-02-01] MEDS: Doxycycline 100 MG CAP PO SCH ×2 (08:03→21:31)
[2023-02-01] MEDS: Docusate 100 MG CAP PO SCH ×2 (08:03→21:31)
[2023-02-01] MEDS: Dabigatran 150 mg Capsule PO SCH ×2 (08:03→21:31)
[2023-02-01] MEDS: Acetaminophen 500 MG TAB PO SCH ×2 (08:03→21:26)
[2023-02-01] MEDS: Furosemide 40 MG TAB PO SCH (08:04)
[2023-02-01] MEDS: guaiFENesin ER 600 MG TAB PO SCH ×2 (08:04→21:31)
[2023-02-01] MEDS: Gabapentin 100 MG CAP PO SCH ×4 (08:04→21:27)
[2023-02-01] MEDS: pyridOXINE 50 MG (B6) TAB PO SCH (08:05)
[2023-02-01] MEDS: Multivit, Therapeutic 1 TAB PO SCH (08:05)
[2023-02-01] MEDS: Potassium Chloride 20 MEQ TAB PO SCH (08:05)
[2023-02-01] MEDS: traMADol HCl 50 MG TAB PO SCH ×3 (08:05→21:36)
[2023-02-01] MEDS: Dexamethasone 4 mg/ml Vial SLOW IVP SCH (08:05)
[2023-02-01] MEDS: Dronedarone HCl 400 MG TAB PO SCH ×2 (08:06→18:17)
[2023-02-01 08:19] LABS: ALT (SGPT) 17 U/L (8-55); AST (SGOT) 23 U/L (5-34); Alkaline Phosphatase 57 U/L (40-110); Anion Gap 15 mmol/L (10-20); BUN (Urea Nitrogen) 34 mg/dL (9.8-20.1); Bilirubin, Total 0.3 mg/dL (0.2-1.2); Calc. Creatinine Clearance 79 mL/min (70-130); Calcium 8.6 mg/dL (7.8-10.44); Carbon Dioxide 27 mmol/L (23-31); Chloride 101 mmol/L (98-107); Estimated GFR 52; Globulin 2.9 g/dL (2.4-3.5); Glucose 101 mg/dL (80-115); Potassium 3.6 mmol/L (3.5-5.1); Protein, Total 5.9 g/dL (5.8-8.1); Sodium 139 mmol/L (136-145)
[2023-02-01] MEDS: Insulin Glargine 30 UNITS/0.3 ML VIAL SC SCH (09:10)
[2023-02-01] MEDS: REMDESIVIR 100 MG in Sodium Chloride 0.9% 250 ML 230 ML IV SCH (09:11)
[2023-02-01] MEDS: HumaLOG 300 UNITS/3 ML VIAL SC PRN ×2 (18:24→21:37)
[2023-02-01] MEDS: Folic Acid/Vit B Comp W-C PO SCH (21:26)
[2023-02-01] MEDS: Cholecalciferol 1,000 UNITS (25 MCG) TAB PO SCH (21:30)
[2023-02-01] MEDS: Zinc Sulfate 220 MG CAP PO SCH (21:31)
[2023-02-01] MEDS: Atorvastatin Calcium 20 MG TAB PO SCH (21:31)
[2023-02-02] MEDS: Albuterol 200 PUFF (6.7GM INHALER) INH SCH ×2 (01:21→05:45)
[2023-02-02] MEDS: cefTRIAXone\\ROCEPHIN 2 GM in Sodium Chloride 0.9% 100 ML IVPB SCH (01:21)
[2023-02-02] MEDS: Mometasone/Formoterol 200/5 60 PUFF INH SCH (05:45)
[2023-02-02 08:12] LABS: ALT (SGPT) 16 U/L (8-55); AST (SGOT) 22 U/L (5-34); Albumin 3.2 g/dL (3.4-4.8); Alkaline Phosphatase 57 U/L (40-110); Anion Gap 13 mmol/L (10-20); BUN (Urea Nitrogen) 32 mg/dL (9.8-20.1); Bilirubin, Total 0.3 mg/dL (0.2-1.2); Calc. Creatinine Clearance 86 mL/min (70-130); Calcium 8.7 mg/dL (7.8-10.44); Carbon Dioxide 26 mmol/L (23-31); Chloride 102 mmol/L (98-107); Estimated GFR 58; Globulin 2.9 g/dL (2.4-3.5); Glucose 67 mg/dL (80-115); Potassium 3.7 mmol/L (3.5-5.1); Protein, Total 6.1 g/dL (5.8-8.1); Sodium 137 mmol/L (136-145)
[2023-02-02] MEDS: traMADol HCl 50 MG TAB PO SCH (08:15)
[2023-02-02 08:26] VITALS: BP 111/71; TEMP 97.7
[2023-02-02] MEDS: guaiFENesin ER 600 MG TAB PO SCH (08:41)
[2023-02-02] MEDS: Dronedarone HCl 400 MG TAB PO SCH (08:41)
[2023-02-02] MEDS: Gabapentin 100 MG CAP PO SCH (08:41)
[2023-02-02] MEDS: Acetaminophen 500 MG TAB PO SCH (08:41)
[2023-02-02] MEDS: Docusate 100 MG CAP PO SCH (08:42)
[2023-02-02] MEDS: Dabigatran 150 mg Capsule PO SCH (08:42)
[2023-02-02] MEDS: Potassium Chloride 20 MEQ TAB PO SCH (08:42)
[2023-02-02] MEDS: Multivit, Therapeutic 1 TAB PO SCH (08:42)
[2023-02-02] MEDS: pyridOXINE 50 MG (B6) TAB PO SCH (08:42)
[2023-02-02] MEDS: Doxycycline 100 MG CAP PO SCH (08:42)
[2023-02-02] MEDS: Furosemide 40 MG TAB PO SCH (08:42)
[2023-02-02] MEDS: Dexamethasone 4 mg/ml Vial SLOW IVP SCH (08:43)
[2023-02-02] MEDS: REMDESIVIR 100 MG in Sodium Chloride 0.9% 250 ML 230 ML IV SCH (09:10)
[2023-02-02] MEDS: Insulin Glargine 30 UNITS/0.3 ML VIAL SC SCH (09:11)
== END 2023-02-02 13:15 | disposition home or self-care (01) | DRG 177 ==
LOC: 2NO 14:11 → T4-B 01-30 15:55
PROVIDERS: ADMIT Internal Medicine; ATTEND Internal Medicine
PROC: XW033E5 Introduction of Remdesivir Anti-infective into Peripheral Vein, Percutaneous Approach, New Technology Group 5 (ICD-10-PCS; principal; 2023-01-29)
PROC: 8E0ZXY6 Isolation (ICD-10-PCS; 2023-01-29)
DX: U07.1 COVID-19 (principal); J12.82 Pneumonia due to coronavirus disease 2019; J96.21 Acute and chronic respiratory failure with hypoxia; J44.0 Chronic obstructive pulmonary disease with (acute) lower respiratory infection; J44.1 Chronic obstructive pulmonary disease with (acute) exacerbation; N18.4 Chronic kidney disease, stage 4 (severe); E87.1 Hypo-osmolality and hyponatremia; I48.0 Paroxysmal atrial fibrillation; E66.9 Obesity, unspecified; E11.22 Type 2 diabetes mellitus with diabetic chronic kidney disease; M19.90 Unspecified osteoarthritis, unspecified site; E87.6 Hypokalemia; E83.42 Hypomagnesemia; E78.5 Hyperlipidemia, unspecified; G89.4 Chronic pain syndrome; M10.9 Gout, unspecified; E11.65 Type 2 diabetes mellitus with hyperglycemia; Z68.38 Body mass index [BMI] 38.0-38.9, adult; Z99.81 Dependence on supplemental oxygen; Z88.1 Allergy status to other antibiotic agents; Z79.4 Long term (current) use of insulin; Z88.8 Allergy status to other drugs, medicaments and biological substances; Z79.51 Long term (current) use of inhaled steroids; Z87.440 Personal history of urinary (tract) infections; Z87.01 Personal history of pneumonia (recurrent); Z87.891 Personal history of nicotine dependence; Z82.49 Family history of ischemic heart disease and other diseases of the circulatory system; Z83.3 Family history of diabetes mellitus; Z80.0 Family history of malignant neoplasm of digestive organs
CPT/HCPCS: 36415; 36416; 71045; 80048; 80053; 83735; 83930; 84100; 84145; 84484; 85025; 86140; 87070; 87205; J0248; J0696; J1100; J1815; J2920; J3475; J3490; J7050; U0003; U0005

== ENCOUNTER 2023-04-02 15:39 | Outpatient (CLI) | payer MEDICARE | END 2023-04-02 15:40 | disposition home or self-care (01) | LOC: SCSRAD 15:39 | PROVIDERS: ATTEND Family Medicine | DX: M79.672 Pain in left foot (principal); M25.572 Pain in left ankle and joints of left foot; M79.89 Other specified soft tissue disorders ==

== ENCOUNTER 2023-05-04 16:23 | Inpatient (IN) | payer MEDICARE ==
[2023-05-04 17:05] LABS: #Eosinphils 0.2 thou/uL (0.0-0.7); #Monocytes 0.7 thou/uL (0.11-0.59); #Neutrophils 4.9 thou/uL (1.40-6.50); %Basophils 0.6 % (0.0-1.0); %Eosinophils 2.8 % (0.0-10.0); %Lymphocytes 16.9 % (21.0-51.0); %Monocytes 10.5 % (0.0-10.0); %Neutrophils 69.1 % (42.0-75.0); Hemoglobin 11.8 g/dL (12.0-16.0); Mean Corpuscular HGB CONC 32.2 g/dL (32.0-36.0); Mean Corpuscular Hemoglobin 30.3 pg (27.0-31.0); Mean Corpuscular Volume 93.8 fl (78.0-98.0); Platelet Count 185 10x3/uL (130-400); RBC Distribution Width 15.5 % (11.5-14.5)
[2023-05-04 17:30] LABS: ALT (SGPT) 11 U/L (8-55); AST (SGOT) 23 U/L (5-34); Alkaline Phosphatase 86 U/L (40-110); Anion Gap 17 mmol/L (10-20); BUN (Urea Nitrogen) 37 mg/dL (9.8-20.1); Bilirubin, Total 1.5 mg/dL (0.2-1.2); Calc. Creatinine Clearance 0 mL/min (70-130); Calcium 9.9 mg/dL (7.8-10.44); Carbon Dioxide 28 mmol/L (23-31); Chloride 99 mmol/L (98-107); Estimated GFR 22; Globulin 3.5 g/dL (2.4-3.5); Glucose 147 mg/dL (80-115); Potassium 4.5 mmol/L (3.5-5.1); Protein, Total 7.5 g/dL (5.8-8.1); Sodium 139 mmol/L (136-145)
[2023-05-04 20:06] LABS: Lactic Acid 0.9 mmol/L (0.5-2.2)
[2023-05-04] MEDS ORDERED: Furosemide 40 MG/4 ML VIAL ONE (20:59)
[2023-05-04] MEDS ORDERED: Ondansetron ODT 4 MG TAB SL PRN (21:15)
[2023-05-04] MEDS ORDERED: Ondansetron PF 4 MG/2 ML Vial IVP PRN (21:15)
[2023-05-04] MEDS ORDERED: Sodium Chloride 0.9% 1,000 ML IV SCH (21:15)
[2023-05-04 22:43] LABS: Troponin I 0.013 ng/mL (< 0.028)
[2023-05-04 23:47] VITALS: BMI 45.0
[2023-05-05] MEDS ORDERED: Ipratropium/Albuterol 3 ML NEB EZPAP PRN (01:13)
[2023-05-05] MEDS ORDERED: Glucagon 1 MG/ML KIT IM PRN (01:13)
[2023-05-05] MEDS ORDERED: HumaLOG 300 UNITS/3 ML VIAL SC PRN ×2 (01:13)
[2023-05-05] MEDS ORDERED: Dextrose 50% Abboject 50 ML SYRINGE SLOW IVP PRN (01:13)
[2023-05-05] MEDS ORDERED: Dextrose 5% in Water 1,000 ML IV PRN (01:13)
[2023-05-05 01:26] LABS: Troponin I 0.017 ng/mL (< 0.028)
[2023-05-05] MEDS: Gabapentin 100 MG CAP PO SCH ×4 (03:36→21:07)
[2023-05-05] MEDS ORDERED: Gabapentin 100 MG CAP PO SCH (03:45)
[2023-05-05 05:06] LABS: #Eosinphils 0.3 thou/uL (0.0-0.7); #Neutrophils 5.5 thou/uL (1.40-6.50); %Basophils 0.5 % (0.0-1.0); %Eosinophils 3.5 % (0.0-10.0); %Lymphocytes 12.6 % (21.0-51.0); %Monocytes 12.3 % (0.0-10.0); %Neutrophils 70.8 % (42.0-75.0); Mean Corpuscular HGB CONC 31.3 g/dL (32.0-36.0); Mean Corpuscular Hemoglobin 29.6 pg (27.0-31.0); Mean Corpuscular Volume 94.6 fl (78.0-98.0); Mean Platelet Volume 11.5 fL (7.4-10.4); Platelet Count 184 10x3/uL (130-400); RBC Distribution Width 15.5 % (11.5-14.5); Red Blood Cell (RBC) Count 3.72 mill/uL (4.20-5.40); White Blood Cell (WBC) Count 7.7 10x3/uL (4.8-10.8)
[2023-05-05 05:30] LABS: Anion Gap 13 mmol/L (10-20); BUN (Urea Nitrogen) 37 mg/dL (9.8-20.1); Calc. Creatinine Clearance 45 mL/min (70-130); Carbon Dioxide 32 mmol/L (23-31); Chloride 94 mmol/L (98-107); Estimated GFR 24; Glucose 132 mg/dL (80-115); Magnesium 1.9 mg/dL (1.6-2.6); Potassium 3.3 mmol/L (3.5-5.1); Sodium 136 mmol/L (136-145)
[2023-05-05] MEDS: Furosemide 40 MG/4 ML VIAL SLOW IVP SCH ×2 (05:49→14:29)
[2023-05-05] MEDS ORDERED: Potassium Chloride 20 MEQ TAB PO SCH (07:00)
[2023-05-05] MEDS: Mometasone 200 MCG/Formoterol 5 MCG 120 PUFF INHALER INH SCH ×2 (07:29→19:08)
[2023-05-05] MEDS: Dronedarone HCl 400 MG TAB PO SCH ×2 (08:36→16:10)
[2023-05-05] MEDS: Ferrous Sulfate 325 MG TAB PO SCH (08:36)
[2023-05-05] MEDS: Docusate 100 MG CAP PO SCH ×2 (08:37→21:06)
[2023-05-05] MEDS: pyridOXINE 50 MG (B6) TAB PO SCH (08:37)
[2023-05-05] MEDS: Cholecalciferol 1,000 UNITS (25 MCG) TAB PO SCH (08:37)
[2023-05-05] MEDS: Insulin Glargine 30 UNITS/0.3 ML VIAL SC SCH (08:37)
[2023-05-05] MEDS: Acetaminophen 325 MG TAB PO PRN (08:45)
[2023-05-05] MEDS ORDERED: Dabigatran 150 mg Capsule PO SCH ×2 (09:00)
[2023-05-05] MEDS: Atorvastatin Calcium 20 MG TAB PO SCH (21:06)
[2023-05-06 04:09] LABS: #Eosinphils 0.3 thou/uL (0.0-0.7); #Monocytes 0.9 thou/uL (0.11-0.59); #Neutrophils 4.9 thou/uL (1.40-6.50); %Basophils 0.6 % (0.0-1.0); %Lymphocytes 15.4 % (21.0-51.0); %Monocytes 12.7 % (0.0-10.0); %Neutrophils 66.9 % (42.0-75.0); Hemoglobin 11.2 g/dL (12.0-16.0); Mean Corpuscular HGB CONC 32.3 g/dL (32.0-36.0); Mean Corpuscular Hemoglobin 30.6 pg (27.0-31.0); Mean Corpuscular Volume 94.8 fl (78.0-98.0); Mean Platelet Volume 11.8 fL (7.4-10.4); Platelet Count 192 10x3/uL (130-400); RBC Distribution Width 15.5 % (11.5-14.5); Red Blood Cell (RBC) Count 3.66 mill/uL (4.20-5.40); White Blood Cell (WBC) Count 7.3 10x3/uL (4.8-10.8)
[2023-05-06 04:35] LABS: Anion Gap 14 mmol/L (10-20); BUN (Urea Nitrogen) 39 mg/dL (9.8-20.1); Calc. Creatinine Clearance 44 mL/min (70-130); Calcium 9.8 mg/dL (7.8-10.44); Carbon Dioxide 34 mmol/L (23-31); Chloride 94 mmol/L (98-107); Estimated GFR 24; Glucose 108 mg/dL (80-115); Iron 42 ug/dL (50-170); Iron Binding Capacity, Total 360 mcg/dL (265-497); Magnesium 2.1 mg/dL (1.6-2.6); Potassium 3.2 mmol/L (3.5-5.1); Sodium 139 mmol/L (136-145)
[2023-05-06] MEDS: Furosemide 40 MG/4 ML VIAL SLOW IVP SCH ×2 (06:15→14:43)
[2023-05-06] MEDS: Mometasone 200 MCG/Formoterol 5 MCG 120 PUFF INHALER INH SCH ×2 (07:35→18:41)
[2023-05-06] MEDS: Dronedarone HCl 400 MG TAB PO SCH ×2 (08:51→16:12)
[2023-05-06] MEDS: Ferrous Sulfate 325 MG TAB PO SCH (08:52)
[2023-05-06] MEDS: Cholecalciferol 1,000 UNITS (25 MCG) TAB PO SCH (08:52)
[2023-05-06] MEDS: Docusate 100 MG CAP PO SCH ×2 (08:53→21:13)
[2023-05-06] MEDS: Gabapentin 100 MG CAP PO SCH ×3 (08:54→21:13)
[2023-05-06] MEDS: Insulin Glargine 30 UNITS/0.3 ML VIAL SC SCH (08:55)
[2023-05-06] MEDS: pyridOXINE 50 MG (B6) TAB PO SCH (08:56)
[2023-05-06] MEDS: Acetaminophen 325 MG TAB PO PRN ×2 (09:08→14:47)
[2023-05-06] MEDS ORDERED: Potassium Chloride 20 MEQ TAB PO SCH (09:15)
[2023-05-06] MEDS ORDERED: Nystatin Powder 15 GM BOT TOP SCH (14:30)
[2023-05-06 15:25] LABS: Anion Gap 13 mmol/L (10-20); BUN (Urea Nitrogen) 39 mg/dL (9.8-20.1); BUN/Creatinine Ratio 16.96; Calc. Creatinine Clearance 41 mL/min (70-130); Calcium 10.1 mg/dL (7.8-10.44); Carbon Dioxide 37 mmol/L (23-31); Chloride 92 mmol/L (98-107); Estimated GFR 23; Glucose 111 mg/dL (80-115); Phosphorus 4.7 mg/dL (2.3-4.7); Potassium 3.6 mmol/L (3.5-5.1); Sodium 138 mmol/L (136-145)
[2023-05-06 18:51] LABS: Bacteria/HPF None Seen HPF (None Seen); Bilirubin Negative (Negative); Blood, Urine Negative (Negative); Clarity Clear (Clear); Glucose, Urine (Dipstick) Normal (Negative); Ketone, Urine Negative (Negative); Leukocyte Negative Leu/uL (Negative); Nitrite Negative (Negative); Protein, Urine (Dipstick) Negative (Neg-Trace); RBC/HPF 0-3 HPF (0-3); Specific Gravity, Urine 1.008 (1.002-1.036); Squamous Epithelial 0-3 HPF (0-3); Urobilinogen Normal mg/dL (Less than 2); WBC/HPF 0-3 HPF (0-3); pH, Urine 7.5 (5.0-9.0)
[2023-05-06 19:04] LABS: Creatinine, Urine Less than 20.00 mg/dL (47-110); Protein, Urine Random Quant Less than 10 mg/dL (1-14); Urea Nitrogen, Random Urine 155 mg/dl
[2023-05-06] MEDS: Atorvastatin Calcium 20 MG TAB PO SCH (21:13)
[2023-05-06] MEDS: Nystatin Powder 15 GM BOT TOP SCH (21:13)
[2023-05-07 04:13] LABS: #Basophils 0.1 thou/uL (0.0-0.2); #Eosinphils 0.3 thou/uL (0.0-0.7); #Monocytes 0.9 thou/uL (0.11-0.59); #Neutrophils 5.5 thou/uL (1.40-6.50); %Basophils 0.6 % (0.0-1.0); %Eosinophils 3.3 % (0.0-10.0); %Lymphocytes 15.8 % (21.0-51.0); %Monocytes 11.5 % (0.0-10.0); %Neutrophils 68.5 % (42.0-75.0); Hemoglobin 11.6 g/dL (12.0-16.0); Mean Corpuscular HGB CONC 31.7 g/dL (32.0-36.0); Mean Corpuscular Hemoglobin 29.8 pg (27.0-31.0); Mean Corpuscular Volume 94.1 fl (78.0-98.0); Mean Platelet Volume 11.2 fL (7.4-10.4); Platelet Count 204 10x3/uL (130-400); RBC Distribution Width 15.6 % (11.5-14.5); Red Blood Cell (RBC) Count 3.89 mill/uL (4.20-5.40)
[2023-05-07 06:27] LABS: Anion Gap 17 mmol/L (10-20); BUN (Urea Nitrogen) 46 mg/dL (9.8-20.1); Calc. Creatinine Clearance 44 mL/min (70-130); Carbon Dioxide 34 mmol/L (23-31); Chloride 91 mmol/L (98-107); Estimated GFR 25; Glucose 135 mg/dL (80-115); Magnesium 1.9 mg/dL (1.6-2.6); Sodium 139 mmol/L (136-145)
[2023-05-07] MEDS: Mometasone 200 MCG/Formoterol 5 MCG 120 PUFF INHALER INH SCH (07:42)
[2023-05-07] MEDS ORDERED: Empagliflozin 10 MG TAB PO SCH (09:00)
[2023-05-07] MEDS: Dronedarone HCl 400 MG TAB PO SCH (09:16)
[2023-05-07] MEDS: Gabapentin 100 MG CAP PO SCH (09:16)
[2023-05-07] MEDS: Potassium Chloride 20 MEQ TAB PO SCH ×2 (09:17→12:04)
[2023-05-07] MEDS: Ferrous Sulfate 325 MG TAB PO SCH (09:17)
[2023-05-07] MEDS: Docusate 100 MG CAP PO SCH (09:18)
[2023-05-07] MEDS: Cholecalciferol 1,000 UNITS (25 MCG) TAB PO SCH (09:18)
[2023-05-07] MEDS: Nystatin Powder 15 GM BOT TOP SCH (09:19)
[2023-05-07] MEDS: Insulin Glargine 30 UNITS/0.3 ML VIAL SC SCH (09:19)
[2023-05-07] MEDS: pyridOXINE 50 MG (B6) TAB PO SCH (09:20)
[2023-05-07 11:26] VITALS: BP 121/64; TEMP 97.4
== END 2023-05-07 15:30 | disposition home or self-care (01) | DRG 291 ==
LOC: ERS 16:23 → ERHOLD 20:54 → 2NO 23:21
PROVIDERS: ADMIT Internal Medicine; ATTEND Internal Medicine
DX: I50.33 Acute on chronic diastolic (congestive) heart failure (principal); J96.21 Acute and chronic respiratory failure with hypoxia; N17.9 Acute kidney failure, unspecified; I48.91 Unspecified atrial fibrillation; E11.22 Type 2 diabetes mellitus with diabetic chronic kidney disease; E66.9 Obesity, unspecified; J44.9 Chronic obstructive pulmonary disease, unspecified; I48.0 Paroxysmal atrial fibrillation; E87.6 Hypokalemia; E78.5 Hyperlipidemia, unspecified; N18.30 Chronic kidney disease, stage 3 unspecified; I25.10 Atherosclerotic heart disease of native coronary artery without angina pectoris; D63.1 Anemia in chronic kidney disease; Z88.8 Allergy status to other drugs, medicaments and biological substances; Z79.4 Long term (current) use of insulin; Z79.51 Long term (current) use of inhaled steroids; Z79.899 Other long term (current) drug therapy; Z98.41 Cataract extraction status, right eye; Z98.42 Cataract extraction status, left eye; Z82.49 Family history of ischemic heart disease and other diseases of the circulatory system; Z87.891 Personal history of nicotine dependence; Z90.49 Acquired absence of other specified parts of digestive tract; Z98.890 Other specified postprocedural states
CPT/HCPCS: 36415; 36416; 71045; 80048; 80053; 81001; 82570; 82728; 83540; 83550; 83605; 83735; 83880; 84156; 84484; 84540; 85025; 93005; 93306; 96374; J1815; J1940

== ENCOUNTER 2023-10-22 23:31 | Inpatient (IN) | payer MEDICARE ==
[2023-10-23] LABS: #Monocytes 0.2 thou/uL (0.11-0.59); %Basophils 0.2 % (0.0-1.0); %Lymphocytes 3.3 % (21.0-51.0); %Monocytes 1.2 % (0.0-10.0); %Neutrophils 94.6 % (42.0-75.0); Hematocrit 45.1 % (36.0-47.0); Hemoglobin 14.8 g/dL (12.0-16.0); Mean Corpuscular HGB CONC 32.8 g/dL (32.0-36.0); Mean Corpuscular Hemoglobin 30.6 pg (27.0-31.0); Mean Corpuscular Volume 93.2 fl (78.0-98.0); Mean Platelet Volume 11.5 fL (7.4-10.4); Platelet Count 268 10x3/uL (130-400); RBC Distribution Width 14.3 % (11.5-14.5); Red Blood Cell (RBC) Count 4.84 mill/uL (4.20-5.40); White Blood Cell (WBC) Count 16.9 10x3/uL (4.8-10.8)
[2023-10-23 00:02] LABS: Base Excess 0.4 mEq/L (-2.0 to +3.0); Calcium, Ionized (venous) 1.02 mmol/L (1.16-1.32); Chloride (VBG) 92 mmol/L (98-106); Hematocrit-VBG 47 % (36.0-47.0); Hemoglobin (Hb) 15.9 g/dL (11.7-16.1); Potassium (VBG) 4.44 mmol/L (3.70-5.30); Sodium 129 mmol/L (133-146); pH (venous) 7.508 (7.32-7.43)
[2023-10-23] MEDS ORDERED: Cefepime 2 GM VIAL ONE (00:08)
[2023-10-23] MEDS ORDERED: Sodium Chloride 0.9% 100 ML ONE (00:09)
[2023-10-23] MEDS ORDERED: Vancomycin (BATCH) 1.5 GM in Premix 1 BAG IVPB SCH (00:15)
[2023-10-23 00:24] LABS: ALT (SGPT) 25 U/L (8-55); AST (SGOT) 27 U/L (5-34); Albumin 4.1 g/dL (3.4-4.8); Alkaline Phosphatase 133 U/L (40-110); Anion Gap 20 mmol/L (10-20); BUN (Urea Nitrogen) 39 mg/dL (9.8-20.1); Bilirubin, Total 2.5 mg/dL (0.2-1.2); Calc. Creatinine Clearance 0 mL/min (70-130); Calcium 9.6 mg/dL (7.8-10.44); Carbon Dioxide 22 mmol/L (23-31); Chloride 92 mmol/L (98-107); Estimated GFR 24; Globulin 3.7 g/dL (2.4-3.5); Glucose 226 mg/dL (80-115); Magnesium 1.9 mg/dL (1.6-2.6); Potassium 4.4 mmol/L (3.5-5.1); Protein, Total 7.8 g/dL (5.8-8.1); Sodium 130 mmol/L (136-145)
[2023-10-23 00:25] LABS: INR-International Normal Ratio 1.8; Prothrombin Time 21.4 sec (12.0-14.7)
[2023-10-23 00:27] LABS: D-Dimer Test 0.47 *mcg/mL (0.27-0.43)
[2023-10-23 01:07] LABS: Troponin I 0.369 ng/mL (< 0.028)
[2023-10-23] MEDS ORDERED: Aspirin 325 MG TAB ONE (01:32)
[2023-10-23] MEDS ORDERED: Acetaminophen 500 MG TAB ONE (01:32)
[2023-10-23] MEDS ORDERED: Ondansetron PF 4 MG/2 ML Vial ONE (01:32)
[2023-10-23] MEDS ORDERED: methylPREDNISolone Sod Succ/PF 125 MG/2 ML VIAL ONE (01:33)
[2023-10-23] MEDS ORDERED: Ondansetron ODT 4 MG TAB SL PRN (03:00)
[2023-10-23] MEDS ORDERED: Ondansetron PF 4 MG/2 ML Vial IVP PRN (03:00)
[2023-10-23] MEDS ORDERED: Acetaminophen 325 MG TAB PO PRN (03:00)
[2023-10-23 04:03] LABS: Lactic Acid 2.9 mmol/L (0.5-2.2)
[2023-10-23] MEDS ORDERED: Senokot S 8.6-50 MG TAB PO PRN (04:21)
[2023-10-23] MEDS ORDERED: Calcium Carbonate 500 MG ChewTAB PO PRN (04:21)
[2023-10-23] MEDS ORDERED: Dextrose 5% in Water 1,000 ML IV PRN (04:25)
[2023-10-23] MEDS ORDERED: Dextrose 50% Abboject 50 ML SYRINGE SLOW IVP PRN (04:25)
[2023-10-23] MEDS ORDERED: Glucagon 1 MG/ML KIT IM PRN (04:25)
[2023-10-23] MEDS ORDERED: Ipratropium/Albuterol 3 ML NEB NEB PRN (05:49)
[2023-10-23 05:52] LABS: Troponin I 0.385 ng/mL (< 0.028)
[2023-10-23] MEDS: HumaLOG 300 UNITS/3 ML VIAL SC PRN ×4 (06:35→20:20)
[2023-10-23] MEDS: Ipratropium/Albuterol 3 ML NEB NEB SCH ×3 (07:23→19:24)
[2023-10-23] MEDS ORDERED: Furosemide 40 MG TAB PO SCH (07:30)
[2023-10-23] MEDS ORDERED: Non-Formulary Item 1 EACH (Albuterol Sulfate [Proair Digihaler] 90 MCG Aer.Pw.Bas) IH SCH (09:00)
[2023-10-23 09:21] LABS: Critical Call Chem Troponin I RESULT DECREASING
[2023-10-23] MEDS: Dronedarone HCl 400 MG TAB PO SCH ×2 (09:21→16:32)
[2023-10-23] MEDS: Cefepime 1 GM in Sodium Chloride 0.9% 100 ML IVPB SCH ×2 (09:21→20:16)
[2023-10-23] MEDS: Famotidine 20 MG TAB PO SCH (09:22)
[2023-10-23] MEDS: methylPREDNISolone Sod Succ 40 MG VIAL IVP SCH ×2 (09:22→20:17)
[2023-10-23] MEDS: Furosemide 40 MG TAB PO SCH ×2 (09:22→13:22)
[2023-10-23] MEDS: Insulin Glargine 30 UNITS/0.3 ML VIAL SC SCH (10:01)
[2023-10-23 10:50] LABS: Bacteria/HPF None Seen HPF (None Seen); Bilirubin Negative (Negative); Blood, Urine 2+ (Negative); CAUTI Indications for Culture Alt mental st,lethar; Clarity Turbid (Clear); Glucose, Urine (Dipstick) Greater than 1000 mg/dL (Negative); Ketone, Urine Negative (Negative); Leukocyte 250 Leu/uL (Negative); Nitrite Negative (Negative); Protein, Urine (Dipstick) 50 mg/dL (Neg-Trace); Specific Gravity, Urine 1.015 (1.002-1.036); Squamous Epithelial None Seen HPF (0-3); Urobilinogen Normal mg/dL (Less than 2); WBC/HPF Greater than 50 HPF (0-3); pH, Urine 5.5 (5.0-9.0)
[2023-10-23 11:01] LABS: Urine Culture Reflex Yes Yes
[2023-10-23] MEDS ORDERED: Gabapentin 100 MG CAP PO SCH ×3 (12:00→21:00)
[2023-10-23] MEDS ORDERED: Acetaminophen 500 MG TAB PO PRN (14:25)
[2023-10-23] MEDS: traMADol HCl 50 MG TAB PO SCH ×2 (15:57→20:17)
[2023-10-23] MEDS: Potassium Chloride 20 MEQ TAB PO SCH (20:15)
[2023-10-23] MEDS: Atorvastatin Calcium 20 MG TAB PO SCH (20:16)
[2023-10-23] MEDS: Gabapentin 100 MG CAP PO SCH (20:16)
[2023-10-24] MEDS: Ipratropium/Albuterol 3 ML NEB NEB SCH ×4 (01:27→18:26)
[2023-10-24 04:41] LABS: #Basophils 0.1 thou/uL (0.0-0.2); #Monocytes 0.9 thou/uL (0.11-0.59); #Neutrophils 20.2 thou/uL (1.40-6.50); %Basophils 0.2 % (0.0-1.0); %Eosinophils 0.1 % (0.0-10.0); %Monocytes 4.1 % (0.0-10.0); %Neutrophils 93.7 % (42.0-75.0); Hematocrit 41.7 % (36.0-47.0); Hemoglobin 13.3 g/dL (12.0-16.0); Mean Corpuscular HGB CONC 31.9 g/dL (32.0-36.0); Mean Corpuscular Hemoglobin 30.2 pg (27.0-31.0); Mean Corpuscular Volume 94.6 fl (78.0-98.0); Mean Platelet Volume 11.7 fL (7.4-10.4); Platelet Count 221 10x3/uL (130-400); RBC Distribution Width 14.3 % (11.5-14.5); Red Blood Cell (RBC) Count 4.41 mill/uL (4.20-5.40); White Blood Cell (WBC) Count 21.5 10x3/uL (4.8-10.8)
[2023-10-24 05:09] LABS: ALT (SGPT) 22 U/L (8-55); AST (SGOT) 19 U/L (5-34); Albumin 3.7 g/dL (3.4-4.8); Alkaline Phosphatase 107 U/L (40-110); Anion Gap 19 mmol/L (10-20); BUN (Urea Nitrogen) 55 mg/dL (9.8-20.1); Bilirubin, Total 1.1 mg/dL (0.2-1.2); Calc. Creatinine Clearance 31 mL/min (70-130); Calcium 9.2 mg/dL (7.8-10.44); Carbon Dioxide 22 mmol/L (23-31); Chloride 87 mmol/L (98-107); Estimated GFR 18; Globulin 4.1 g/dL (2.4-3.5); Potassium 4.1 mmol/L (3.5-5.1); Protein, Total 7.8 g/dL (5.8-8.1); Sodium 124 mmol/L (136-145)
[2023-10-24 05:13] LABS: Glucose 558 mg/dL (80-115)
[2023-10-24] MEDS: HumaLOG 300 UNITS/3 ML VIAL SC PRN ×3 (06:00→22:01)
[2023-10-24] MEDS: Cefepime 1 GM in Sodium Chloride 0.9% 100 ML IVPB SCH ×2 (08:25→21:20)
[2023-10-24] MEDS: traMADol HCl 50 MG TAB PO SCH ×3 (08:26→21:20)
[2023-10-24] MEDS: Potassium Chloride 20 MEQ TAB PO SCH ×2 (08:26→21:19)
[2023-10-24] MEDS: Ferrous Sulfate 325 MG TAB PO SCH (08:26)
[2023-10-24] MEDS: Insulin Glargine 30 UNITS/0.3 ML VIAL SC SCH (08:26)
[2023-10-24] MEDS: Dronedarone HCl 400 MG TAB PO SCH ×2 (08:27→17:34)
[2023-10-24] MEDS: Cholecalciferol 1,000 UNITS (25 MCG) TAB PO SCH (08:27)
[2023-10-24] MEDS: Famotidine 20 MG TAB PO SCH (08:27)
[2023-10-24] MEDS: Furosemide 40 MG TAB PO SCH ×2 (08:27→13:09)
[2023-10-24] MEDS: Gabapentin 100 MG CAP PO SCH ×2 (08:28→21:19)
[2023-10-24] MEDS: pyridOXINE 50 MG (B6) TAB PO SCH (08:29)
[2023-10-24] MEDS ORDERED: predniSONE 20 MG TAB PO SCH (08:45)
[2023-10-24 12:07] LABS: Anion Gap 18 mmol/L (10-20); BUN (Urea Nitrogen) 54 mg/dL (9.8-20.1); Calc. Creatinine Clearance 33 mL/min (70-130); Calcium 9.1 mg/dL (7.8-10.44); Carbon Dioxide 21 mmol/L (23-31); Chloride 89 mmol/L (98-107); Estimated GFR 19; Potassium 4.2 mmol/L (3.5-5.1); Sodium 124 mmol/L (136-145)
[2023-10-24 12:12] LABS: Glucose 602 mg/dL (80-115)
[2023-10-24] MEDS ORDERED: HumaLOG 300 UNITS/3 ML VIAL SC SCH ×2 (12:30→16:45)
[2023-10-24] MEDS ORDERED: Phenol 177 ML BOT PO PRN (16:07)
[2023-10-24 18:33] LABS: Anion Gap 18 mmol/L (10-20); BUN (Urea Nitrogen) 57 mg/dL (9.8-20.1); Calc. Creatinine Clearance 34 mL/min (70-130); Calcium 9.6 mg/dL (7.8-10.44); Carbon Dioxide 24 mmol/L (23-31); Chloride 88 mmol/L (98-107); Estimated GFR 20; Potassium 4.6 mmol/L (3.5-5.1); Sodium 125 mmol/L (136-145)
[2023-10-24 18:37] LABS: Glucose 428 mg/dL (80-115)
[2023-10-24] MEDS: Atorvastatin Calcium 20 MG TAB PO SCH (21:20)
[2023-10-24 21:44] LABS: Glucose 574 mg/dL (80-115)
[2023-10-25] MEDS: Ipratropium/Albuterol 3 ML NEB NEB SCH ×5 (00:15→23:12)
[2023-10-25] MEDS: HumaLOG 300 UNITS/3 ML VIAL SC PRN ×5 (00:17→20:43)
[2023-10-25 04:14] LABS: #Basophils 0.1 thou/uL (0.0-0.2); #Eosinphils 0.1 thou/uL (0.0-0.7); #Monocytes 1.6 thou/uL (0.11-0.59); #Neutrophils 20.2 thou/uL (1.40-6.50); %Basophils 0.2 % (0.0-1.0); %Eosinophils 0.3 % (0.0-10.0); %Lymphocytes 2.7 % (21.0-51.0); %Monocytes 7.2 % (0.0-10.0); %Neutrophils 88.5 % (42.0-75.0); Hematocrit 44.5 % (36.0-47.0); Hemoglobin 14.3 g/dL (12.0-16.0); Mean Corpuscular HGB CONC 32.1 g/dL (32.0-36.0); Mean Corpuscular Hemoglobin 30.2 pg (27.0-31.0); Mean Corpuscular Volume 94.1 fl (78.0-98.0); Platelet Count 237 10x3/uL (130-400); RBC Distribution Width 14.2 % (11.5-14.5); Red Blood Cell (RBC) Count 4.73 mill/uL (4.20-5.40); White Blood Cell (WBC) Count 22.8 10x3/uL (4.8-10.8)
[2023-10-25 04:35] LABS: Anion Gap 20 mmol/L (10-20); BUN (Urea Nitrogen) 61 mg/dL (9.8-20.1); Calc. Creatinine Clearance 35 mL/min (70-130); Calcium 9.9 mg/dL (7.8-10.44); Carbon Dioxide 22 mmol/L (23-31); Chloride 89 mmol/L (98-107); Estimated GFR 21; Glucose 272 mg/dL (80-115); Potassium 4.9 mmol/L (3.5-5.1); Sodium 126 mmol/L (136-145)
[2023-10-25] MEDS: Gabapentin 100 MG CAP PO SCH ×2 (08:00→20:41)
[2023-10-25] MEDS: Potassium Chloride 20 MEQ TAB PO SCH (08:01)
[2023-10-25] MEDS: traMADol HCl 50 MG TAB PO SCH ×3 (08:01→20:42)
[2023-10-25] MEDS: predniSONE 20 MG TAB PO SCH (08:01)
[2023-10-25] MEDS: Cholecalciferol 1,000 UNITS (25 MCG) TAB PO SCH (08:01)
[2023-10-25] MEDS: Dronedarone HCl 400 MG TAB PO SCH ×2 (08:02→17:51)
[2023-10-25] MEDS: Ferrous Sulfate 325 MG TAB PO SCH (08:02)
[2023-10-25] MEDS: Insulin Glargine 30 UNITS/0.3 ML VIAL SC SCH (08:02)
[2023-10-25] MEDS: Furosemide 40 MG TAB PO SCH ×2 (08:02→14:45)
[2023-10-25] MEDS: Cefepime 1 GM in Sodium Chloride 0.9% 100 ML IVPB SCH (08:02)
[2023-10-25] MEDS: pyridOXINE 50 MG (B6) TAB PO SCH (09:26)
[2023-10-25] MEDS: Empagliflozin 25 MG TAB PO SCH (09:26)
[2023-10-25 12:14] LABS: Actual Bicarbonate (HCO3v) 19.8 mEq/L (22-28); Base Excess -3.9 mEq/L (-2.0 to +3.0); Calcium, Ionized (venous) 1.04 mmol/L (1.16-1.32); Chloride (VBG) 91 mmol/L (98-106); Hematocrit-VBG 45 % (36.0-47.0); Hemoglobin (Hb) 15.3 g/dL (11.7-16.1); Potassium (VBG) 5.78 mmol/L (3.70-5.30); Sodium 124 mmol/L (133-146); pH (venous) 7.402 (7.32-7.43)
[2023-10-25 12:46] LABS: Anion Gap 19 mmol/L (10-20); BUN (Urea Nitrogen) 62 mg/dL (9.8-20.1); Calc. Creatinine Clearance 38 mL/min (70-130); Calcium 9.5 mg/dL (7.8-10.44); Carbon Dioxide 21 mmol/L (23-31); Chloride 91 mmol/L (98-107); Estimated GFR 22; Sodium 125 mmol/L (136-145)
[2023-10-25 12:55] LABS: Glucose 404 mg/dL (80-115)
[2023-10-25] MEDS ORDERED: LOKELMA 10 GM PACKET PO SCH (17:15)
[2023-10-25] MEDS ORDERED: Calcium Gluc 4.6 MEQ/10 ML (100 MG/ML) SLOW IVP SCH (17:15)
[2023-10-25] MEDS: Budesonide 0.5 MG/2 ML NEB INH SCH (19:05)
[2023-10-25] MEDS: Atorvastatin Calcium 20 MG TAB PO SCH (20:42)
[2023-10-26 04:15] LABS: #Monocytes 1.6 thou/uL (0.11-0.59); #Neutrophils 17.8 thou/uL (1.40-6.50); %Basophils 0.1 % (0.0-1.0); %Eosinophils 0.1 % (0.0-10.0); %Lymphocytes 5.2 % (21.0-51.0); %Monocytes 7.6 % (0.0-10.0); %Neutrophils 85.9 % (42.0-75.0); Hematocrit 41.6 % (36.0-47.0); Hemoglobin 13.7 g/dL (12.0-16.0); Mean Corpuscular HGB CONC 32.9 g/dL (32.0-36.0); Mean Corpuscular Hemoglobin 30.5 pg (27.0-31.0); Mean Corpuscular Volume 92.7 fl (78.0-98.0); Mean Platelet Volume 11.8 fL (7.4-10.4); Platelet Count 218 10x3/uL (130-400); RBC Distribution Width 14.2 % (11.5-14.5); Red Blood Cell (RBC) Count 4.49 mill/uL (4.20-5.40); White Blood Cell (WBC) Count 20.8 10x3/uL (4.8-10.8)
[2023-10-26 04:39] LABS: ALT (SGPT) 27 U/L (8-55); AST (SGOT) 21 U/L (5-34); Albumin 3.7 g/dL (3.4-4.8); Alkaline Phosphatase 106 U/L (40-110); Anion Gap 17 mmol/L (10-20); BUN (Urea Nitrogen) 64 mg/dL (9.8-20.1); Bilirubin, Total 0.8 mg/dL (0.2-1.2); Calc. Creatinine Clearance 35 mL/min (70-130); Calcium 9.7 mg/dL (7.8-10.44); Carbon Dioxide 25 mmol/L (23-31); Chloride 92 mmol/L (98-107); Estimated GFR 20; Globulin 3.7 g/dL (2.4-3.5); Glucose 305 mg/dL (80-115); Potassium 4.7 mmol/L (3.5-5.1); Protein, Total 7.4 g/dL (5.8-8.1); Sodium 129 mmol/L (136-145)
[2023-10-26] MEDS: HumaLOG 300 UNITS/3 ML VIAL SC PRN ×4 (06:19→22:55)
[2023-10-26] MEDS: Budesonide 0.5 MG/2 ML NEB INH SCH ×2 (06:48→18:39)
[2023-10-26] MEDS: Ipratropium/Albuterol 3 ML NEB NEB SCH ×3 (06:49→18:34)
[2023-10-26] MEDS ORDERED: Cefepime 1 GM in Sodium Chloride 0.9% 100 ML IVPB SCH (09:00)
[2023-10-26] MEDS: Gabapentin 100 MG CAP PO SCH ×2 (09:27→22:12)
[2023-10-26] MEDS: Insulin Glargine 30 UNITS/0.3 ML VIAL SC SCH (09:27)
[2023-10-26] MEDS: predniSONE 20 MG TAB PO SCH (09:27)
[2023-10-26] MEDS: Dronedarone HCl 400 MG TAB PO SCH ×2 (09:27→16:01)
[2023-10-26] MEDS: Furosemide 40 MG TAB PO SCH ×2 (09:27→14:26)
[2023-10-26] MEDS: Ferrous Sulfate 325 MG TAB PO SCH (09:28)
[2023-10-26] MEDS: traMADol HCl 50 MG TAB PO SCH ×3 (09:28→22:13)
[2023-10-26] MEDS: Empagliflozin 25 MG TAB PO SCH (09:28)
[2023-10-26] MEDS: Cholecalciferol 1,000 UNITS (25 MCG) TAB PO SCH (09:28)
[2023-10-26] MEDS: pyridOXINE 50 MG (B6) TAB PO SCH (09:28)
[2023-10-26] MEDS ORDERED: Nystatin Powder 15 GM BOT TOP PRN (10:48)
[2023-10-26] MEDS: Mometasone 200 MCG/Formoterol 5 MCG 120 PUFF INHALER INH SCH (18:39)
[2023-10-26] MEDS: Atorvastatin Calcium 20 MG TAB PO SCH (22:13)
[2023-10-27] MEDS: Ipratropium/Albuterol 3 ML NEB NEB SCH ×3 (00:21→12:26)
[2023-10-27 03:47] LABS: Hematocrit 40.5 % (36.0-47.0); Hemoglobin 13.6 g/dL (12.0-16.0); Mean Corpuscular HGB CONC 33.6 g/dL (32.0-36.0); Mean Corpuscular Hemoglobin 30.4 pg (27.0-31.0); Mean Corpuscular Volume 90.6 fl (78.0-98.0); Mean Platelet Volume 11.8 fL (7.4-10.4); Platelet Count 205 10x3/uL (130-400); RBC Distribution Width 14.1 % (11.5-14.5); Red Blood Cell (RBC) Count 4.47 mill/uL (4.20-5.40); White Blood Cell (WBC) Count 16.2 10x3/uL (4.8-10.8)
[2023-10-27 04:07] LABS: Anion Gap 19 mmol/L (10-20); BUN (Urea Nitrogen) 66 mg/dL (9.8-20.1); Calc. Creatinine Clearance 42 mL/min (70-130); Calcium 9.5 mg/dL (7.8-10.44); Carbon Dioxide 27 mmol/L (23-31); Chloride 90 mmol/L (98-107); Estimated GFR 25; Glucose 262 mg/dL (80-115); Potassium 3.7 mmol/L (3.5-5.1); Sodium 132 mmol/L (136-145)
[2023-10-27 04:14] LABS: Actual Bicarbonate (HCO3v) 29.2 mEq/L (22-28); Base Excess 1.2 mEq/L (-2.0 to +3.0); Calcium, Ionized (venous) 1.12 mmol/L (1.16-1.32); Chloride (VBG) 88 mmol/L (98-106); Hematocrit-VBG 43 % (36.0-47.0); Hemoglobin (Hb) 14.6 g/dL (11.7-16.1); Potassium (VBG) 3.82 mmol/L (3.70-5.30); Sodium 131 mmol/L (133-146); pH (venous) 7.299 (7.32-7.43)
[2023-10-27 06:37] VITALS: BMI 40.6
[2023-10-27] MEDS: Mometasone 200 MCG/Formoterol 5 MCG 120 PUFF INHALER INH SCH (07:57)
[2023-10-27] MEDS: Budesonide 0.5 MG/2 ML NEB INH SCH (08:01)
[2023-10-27] MEDS: pyridOXINE 50 MG (B6) TAB PO SCH (08:43)
[2023-10-27] MEDS: Dronedarone HCl 400 MG TAB PO SCH (08:43)
[2023-10-27] MEDS: Cholecalciferol 1,000 UNITS (25 MCG) TAB PO SCH (08:43)
[2023-10-27] MEDS: Furosemide 40 MG TAB PO SCH ×2 (08:43→13:21)
[2023-10-27] MEDS: Ferrous Sulfate 325 MG TAB PO SCH (08:43)
[2023-10-27] MEDS: Empagliflozin 25 MG TAB PO SCH (08:43)
[2023-10-27] MEDS: Insulin Glargine 30 UNITS/0.3 ML VIAL SC SCH (08:44)
[2023-10-27] MEDS: Gabapentin 100 MG CAP PO SCH (08:44)
[2023-10-27] MEDS: traMADol HCl 50 MG TAB PO SCH (08:47)
[2023-10-27] MEDS ORDERED: Cefepime 1 GM in Sodium Chloride 0.9% 100 ML IVPB SCH (09:00)
[2023-10-27] MEDS: HumaLOG 300 UNITS/3 ML VIAL SC PRN (12:17)
[2023-10-27 15:17] VITALS: BP 112/66; TEMP 98.2
== END 2023-10-27 15:00 | disposition home or self-care (01) | DRG 871 ==
LOC: ERS 23:31 → IMCU/EMU 10-23 02:55 → 2NO 10-25 14:03 → T4-B 10-26 18:08
PROVIDERS: ADMIT Student in an Organized Health Care Education/Training Program; ATTEND Family Medicine
PROC: 4A133R1 Monitoring of Arterial Saturation, Peripheral, Percutaneous Approach (ICD-10-PCS; principal; 2023-10-22)
PROC: 3E03329 Introduction of Other Anti-infective into Peripheral Vein, Percutaneous Approach (ICD-10-PCS; 2023-10-23)
PROC: 5A09357 Assistance with Respiratory Ventilation, Less than 24 Consecutive Hours, Continuous Positive Airway Pressure (ICD-10-PCS; 2023-10-23)
DX: A41.51 Sepsis due to Escherichia coli [E. coli] (principal); G93.41 Metabolic encephalopathy; I21.4 Non-ST elevation (NSTEMI) myocardial infarction; I50.33 Acute on chronic diastolic (congestive) heart failure; J96.21 Acute and chronic respiratory failure with hypoxia; J18.9 Pneumonia, unspecified organism; J44.1 Chronic obstructive pulmonary disease with (acute) exacerbation; N17.9 Acute kidney failure, unspecified; N39.0 Urinary tract infection, site not specified; Z68.41 Body mass index [BMI] 40.0-44.9, adult; N18.4 Chronic kidney disease, stage 4 (severe); Z88.8 Allergy status to other drugs, medicaments and biological substances; Z79.899 Other long term (current) drug therapy; I48.91 Unspecified atrial fibrillation; Z90.49 Acquired absence of other specified parts of digestive tract; Z98.41 Cataract extraction status, right eye; Z98.42 Cataract extraction status, left eye; Z98.890 Other specified postprocedural states; Z79.4 Long term (current) use of insulin; Z82.49 Family history of ischemic heart disease and other diseases of the circulatory system; I48.0 Paroxysmal atrial fibrillation; E11.22 Type 2 diabetes mellitus with diabetic chronic kidney disease; E66.01 Morbid (severe) obesity due to excess calories; E11.65 Type 2 diabetes mellitus with hyperglycemia; E87.5 Hyperkalemia
CPT/HCPCS: 36415; 36416; 71045; 80048; 80053; 81001; 82010; 82140; 82805; 83605; 83735; 83880; 84484; 85025; 85027; 85379; 85610; 85730; 87040; 87077; 87086; 87149; 87186; 93005; 93970; 94640; 94660; 94760; 96365; 96366; 96368; 96372; 96375; J0612; J0692; J1650; J1815; J2405; J2920; J2930; J3370; J3490; J7512; J7620; J7626